=== PATIENT | male | born 1965 | race Caucasian/White ===

== ENCOUNTER 2021-02-11 10:24 | Emergency (ER) | payer OTHER, SELFPAY ==
[2021-02-11] VITALS (9 sets, daily range): BP systolic 143–147; BP diastolic 85–89; PULSE 64–86; RESP 16–20; TEMP 36.6; O2SAT 92–98; BMI 33.3
[2021-02-11] MEDS: ONDANSETRON 4 MG/2 ML INJ IV (10:40)
--- NOTE | 2021-02-11 10:52 | ED.GENADULT ---
HPI - General Adult General Chief complaint: Dizziness Stated complaint: DIZZINESS, VOMITING, PRESSURE IN EAR Time Seen by Provider: 02/11/21 10:25 Source: patient Mode of arrival: Ambulatory Limitations: no limitations History of Present Illness HPI narrative: Patient is a 55-year-old male who states that a couple days ago he started to not feel very well. He had slight episodes of room spinning sensations that did not last very long were not all that intense. He developed some fullness in his left ear. He thought he was developing some allergies although he has never had allergies in the past. Has not tried anything for symptoms. States that this morning shortly after he woke up he developed extreme episodes of room spinning sensation that is causing him to throw up. He states that it is worse when he lays down and better when he sits up. He also can reproduce his symptoms by looking up. He can look left and right without any problems. He denies any chest pain or shortness of breath. No palpitations. Has not passed out. No headache. Related Data Home Medications Medication Instructions Recorded Confirmed tamsulosin [Flomax] 0.4 mg PO PRN #0 08/05/12 Previous Rx's Medication Instructions Recorded meclizine 25 mg PO TID PRN #21 tab 02/11/21 ondansetron 4 mg PO Q6H PRN #14 tab 02/11/21 Review of Systems Constitutional Constitutional: Denies fatigue, Denies fever(s) and Denies headache(s) Eyes Eyes: Denies change in vision ENT Ears, Nose, Mouth, and Throat: Reports vertigo, Reports dizziness, Reports otalgia (Ear fullness left ear), Denies facial pain, Denies headache(s), Denies tinnitus, Denies sinus pressure and Denies sore throat Cardiovascular Cardiovascular: Denies chest pain, Denies syncope, Denies rapid heart rate, Denies irregular heart rhythm and Denies dyspnea Respiratory Respiratory: Denies cough and Denies dyspnea Gastrointestinal Gastrointestinal: Denies abdominal pain, Denies change in bowel habits, Reports nausea and Reports vomiting Genitourinary Genitourinary: Denies dysuria Genitourinary: Denies dysuria Musculoskeletal Musculoskeletal: Denies arthralgias, Denies myalgias, Denies numbness and Denies tingling Integumentary/Breasts Skin/Breast: Denies lesions and Denies rash Neurologic Neurologic: Denies behavioral changes, Denies confusion, Reports vertigo, Reports dizziness, Denies syncope, Denies headache(s), Denies numbness and Denies tingling Psychiatric Psychiatric: Denies anxiety, Denies behavioral changes and Denies confusion Endocrine Endocrine: Denies fatigue Hematologic/Lymphatic Hematologic/Lymphatic: Denies easy bleeding and Denies easy bruising Allergic/Immunologic Allergic/Immunologic: Denies urticaria Patient History Medical History Healthy adult Social History marital status: lives independently: Yes Exam Initial Vital Signs Initial Vital Signs: Vital Signs Temperature 98 F 02/11/21 10:37 Pulse Rate 86 02/11/21 10:37 Respiratory Rate 20 02/11/21 10:37 Blood Pressure 147/85 H 02/11/21 10:37 Pulse Oximetry 98 02/11/21 10:37 Const General: cooperative, comfortable and well developed Limitations: mental status not altered HENWA Head: normal to inspection and normocephalic Ears: TM's normal bilaterally Nose: external nose normal Face and sinus: normal facial exam Mouth: oral mucosae normal Eyes Eyelids: eyelids normal Pupils: PERRL Resp Effort & Inspection: normal respiratory effort Auscultation: clear to auscultation bilaterally Cardio Rate: regular rate Rhythm: regular rhythm GI Inspection: non-distended Skin Lesions: no lesions Rashes: no rashes Neuro General: patient alert, patient awake and patient oriented x3 Cranial Nerves: CN's II-XI intact bilaterally Cognition: normal cognition Speech: speech normal Motor: muscle tone normal throughout Sensory Exam: no sensory deficits noted Other: He can look left and right without reproducing the symptoms however when he looks straight up the symptoms are reproduced. Extrem General: normal to inspection and capillary refill normal Psych Appearance: grossly normal and well kempt Scores GCS [place] coma scale eye opening: Spontaneous [place] coma scale verbal response: Orientated Eduarda coma scale motor response: Obey commands Eduarda coma scale total score: 15 Course Orders Ordered: Discontinued Medications Diazepam (Diazepam 5 Mg Tablet) 5 mg PO NOW ONE Stop: 02/11/21 10:53 Last Admin: 02/11/21 11:06 Dose: 5 mg Documented by: CLEMENTINA Ondansetron HCl (Ondansetron 4 Mg/2 Ml Inj) 4 mg IV NOW ONE Stop: 02/11/21 10:35 Last Admin: 02/11/21 10:40 Dose: 4 mg Documented by: CLEMENTINA Vital Signs Vital signs: Vital Signs - 8 hr 02/11/21 10:37 02/11/21 10:54 02/11/21 11:00 Temperature 98 F Pulse Rate 86 80 75 Respiratory Rate 20 Blood Pressure 147/85 H Pulse Oximetry 98 92 92 02/11/21 11:30 02/11/21 12:00 02/11/21 12:30 Temperature Pulse Rate 67 64 67 Respiratory Rate Blood Pressure Pulse Oximetry 92 93 93 02/11/21 13:00 02/11/21 13:11 02/11/21 13:13 Temperature Pulse Rate 73 84 Respiratory Rate 16 Blood Pressure 143/89 H 143/89 H Pulse Oximetry 94 97 Medical Decision Making MDM Narrative Medical decision making narrative: Patient does clearly positional reproducible vertigo that is better when he sits still looking straight forward. He has no other neurologic findings. He does complain of left ear fullness however his exam is unremarkable. Considered etiologies such as posterior stroke versus labyrinthitis versus BPPV versus other peripheral vertigo however I feel given his presentation today is most consistent with peripheral vertigo. He did feel somewhat better with the Valium. I feel patient could be discharged home without further workup to include imaging of his head. He was given return precautions. Will send home with symptom treatment. With he and his expressed understanding agreement. Discharge Plan Departure Patient Disposition: Home Clinical Impression: Vertigo Instructions: DI for Vertigo Activity Restrictions/Additional Instructions: A prescription for meclizine and some nausea medicine was electronically transmitted to [facility]. I also recommend that you look up the Kelby maneuver on YouTube and perform it as directed and like we discussed. Contact your primary provider for a follow-up. Also recommend that you purchase [id number] antihistamine such as Claritin or Paulette or Zyrtec. The generic version of these medicine is appropriate as well. Return to the emergency department for any new or worsening symptoms Prescriptions: New meclizine 25 mg tablet 25 mg PO TID PRN (Reason: motion sickness) Qty: 21 RF: 0 ondansetron 4 mg tablet,disintegrating 4 mg PO Q6H PRN (Reason: nausea and vomiting) Qty: 14 RF: 0 No Action tamsulosin [Flomax] 0.4 MG capsule,extended release 24hr 0.4 mg PO PRN Qty: 0 RF: 0 Referrals: Theresa Johnson MD [Primary Care Provider] -
[2021-02-11] MEDS: diazePAM 5 MG TABLET PO (11:06)
== END 2021-02-11 13:13 | disposition home or self-care (01) ==
PROVIDERS: Emergency Provider Emergency Medicine; Family Provider Internal Medicine; PCP Internal Medicine
DX: R42 Dizziness and giddiness (principal)
CPT/HCPCS: 36415; 96374; 99284; J2405

== ENCOUNTER 2021-12-23 06:39 | Emergency (ER) | payer OTHER, SELFPAY ==
[2021-12-23] VITALS (10 sets, daily range): BP systolic 129–138; BP diastolic 70–78; PULSE 83–100; RESP 20; TEMP 36.9; O2SAT 92–95; BMI 34.2
--- NOTE | 2021-12-23 07:27 | ED_ITS ---
HPI - General Adult General Chief complaint: Upper Respiratory Symptoms Stated complaint: dizzy/headache tested covid+ Time Seen by Provider: 12/23/21 07:05 Source: patient Mode of arrival: Ambulatory History of Present Illness HPI narrative: 56-year-old gentleman with a history of BPH presents with increasing cough chills general malaise and dyspnea. Of note his daughter of cancer on the so they have been busy with all of her post arrangements as well as grieving. Began having some minor throat irritation on the and by the was developing a cough, malaise, fatigue, headache, mild diarrhea but no vomiting low-grade fevers, he is complaining of dizziness when he stands up. He is not currently vaccinated against COVID. He comes in for further evaluation an oxygen saturations with deep breathing are as high is 95 and at rest are 87 on room air. Comes up to 98% with 2 L nasal cannula oxygen. Related Data Home Medications Medication Instructions Recorded Confirmed tamsulosin 0.4 mg capsule (Flomax) 0.4 mg PO PRN #0 08/05/12 Previous Rx's Medication Instructions Recorded meclizine 25 mg tablet 25 mg PO TID PRN #21 tab 02/11/21 ondansetron 4 mg disintegrating 4 mg PO Q6H PRN #14 tab 02/11/21 tablet Allergies Allergy/AdvReac Type Severity Reaction Status Date / Time No Known Drug Allergies Allergy Verified 12/23/21 08:51 Review of Systems Review of Systems Narrative: Remainder of complete review of systems is otherwise unremarkable except for that included in the HPI. Patient History Medical History (Updated 12/23/21 @ 09:55 by Renita Martínez MD) COVID-19 Healthy adult Social History marital status: lives independently: Yes Smoking Status: Never smoker Smoking Status: Never smoker Substance Use Type: does not use Exam Initial Vital Signs Initial Vital Signs: Vital Signs Temperature 98.4 F 12/23/21 06:50 Pulse Rate 100 H 12/23/21 06:50 Respiratory Rate 20 12/23/21 06:50 Blood Pressure 135/70 12/23/21 06:50 Pulse Oximetry 92 12/23/21 06:50 General: Fatigued appearing but in no acute distress. Able to give a complete and coherent history. Well-nourished well-developed HEENT: Moist mucous membranes, normal sclera with reactive pupils, Neck: No JVD, supple Respiratory: Lungs are clear to auscultation, no wheezing no rales no rhonchi. Full and symmetrical air movement Cardiac: Regular rate and rhythm no murmurs no bruits Abdomen: Soft, nontender, good bowel tones, no flank pain Skin: Warm and dry, no rashes Neurologic: Grossly neurologically intact with no obvious asymmetries or abnormalities Extremities: No trauma, well perfused Psych: Cooperative, appropriate insight and affect Course Orders Ordered: ED Orders 12/23/21 08:10 Complete Blood Count AUTO DIFF Stat Comprehensive Metabolic Panel Stat D Dimer Stat Magnesium Stat Procalcitonin Stat 12/23/21 08:12 XR chest 1V Stat 12/23/21 08:30 COVID19 -Nasal swab/Pre-Proc Stat 12/23/21 09:24 Consult to MEDICAL BILLING AND CODING INSTRUCTOR - Director Of Volunteer Services Stat Discontinued Medications Dexamethasone (Dexamethasone 10 Mg/Ml Vial) 6 mg IV NOW ONE Stop: 12/23/21 08:13 Last Admin: 12/23/21 08:53 Dose: 6 mg Documented by: ALEJO Sodium Chloride (Normal Saline 0.9%) 1,000 mls @ 1,000 mls/hr IV BOLUS ONE Stop: 12/23/21 09:11 Last Admin: 12/23/21 08:53 Dose: 1,000 mls/hr Documented by: ALEJO Ketorolac Tromethamine (Ketorolac 30 Mg/Ml Vial) 15 mg IV NOW ONE Stop: 12/23/21 08:13 Last Admin: 12/23/21 08:51 Dose: 15 mg Documented by: ALEJO Metoclopramide HCl (Metoclopramide 10 Mg/2 Ml Inj) 10 mg IV NOW ONE Stop: 12/23/21 08:13 Last Admin: 12/23/21 08:52 Dose: 10 mg Documented by: ALEJO Vital Signs Vital signs: Vital Signs - 8 hr 12/23/21 06:50 12/23/21 08:13 12/23/21 08:14 Temperature 98.4 F Pulse Rate 100 H 93 H 93 H Respiratory Rate 20 Blood Pressure 135/70 138/78 Pulse Oximetry 92 94 94 12/23/21 08:30 Temperature Pulse Rate 94 H Respiratory Rate Blood Pressure 134/74 Pulse Oximetry 92 Medical Decision Making Lab Data Result diagrams: 12/23/21 08:10 12/23/21 08:10 Labs: Lab Results 12/23/21 12/23/21 12/23/21 Range/Units 08:10 08:10 08:10 WBC 4.2 L (4.5-11.0) X10^3/uL RBC 4.41 L (4.5-5.9) X10^6/uL Hgb 12.7 L (13.5-17.5) g/dL Hct 37.1 L (41-53) % MCV 84.2 (80-100) fL MCH 28.9 (26-34) PG MCHC 34.3 (30-36) % RDW 13.4 (11.6-14.8) % Plt Count 169 (150-400) X10^3/uL Neut % (Auto) 86.1 H (50-75) % Lymph % (Auto) 8.5 L (25-40) % Will % (Auto) 5.1 (3-14) % Eos % (Auto) 0.0 L (2-4) % Baso % (Auto) 0.3 (0-2) % Neut # (Auto) 3600 (6920-9931) /uL Lymph # (Auto) 400 L (9573-7612) /uL Will # (Auto) 200 (0-900) /uL Eos # (Auto) 0 (0-450) /uL Baso # (Auto) 0 (0-100) /uL D-Dimer 327 H (<230) ng/mL Sodium 129 L (137-145) mmol/L Potassium 3.5 (3.4-5.1) mmol/L Chloride 95 L (98-107) mmol/L Carbon Dioxide 28 (22-32) mmol/L BUN 7 L (9-20) mg/dL Creatinine 0.68 (0.66-1.25) mg/dL Estimated GFR > 60.0 (>60) mL/min BUN/Creatinine Ratio 10.3 (6-22) Glucose 130 H (70-100) mg/dL Calcium 8.0 L (8.4-10.2) mg/dL Magnesium 1.8 (1.6-2.3) mg/dL Total Bilirubin 0.6 (0.2-1.3) mg/dL AST 45 (17-59) IU/L ALT 36 (<50) IU/L Alkaline Phosphatase 63 (38-126) U/L Total Protein 6.5 (6.3-8.2) g/dL Albumin 3.6 (3.5-5.0) g/dL Globulin 2.9 (1.7-4.1) g/dL Albumin/Globulin Ratio 1.2 (1.0-2.8) Procalcitonin 0.06 (<0.5) ng/mL SARS-CoV-2 (PCR) (Negative) 12/23/21 Range/Units 08:30 WBC (4.5-11.0) X10^3/uL RBC (4.5-5.9) X10^6/uL Hgb (13.5-17.5) g/dL Hct (41-53) % MCV (80-100) fL MCH (26-34) PG MCHC (30-36) % RDW (11.6-14.8) % Plt Count (150-400) X10^3/uL Neut % (Auto) (50-75) % Lymph % (Auto) (25-40) % Will % (Auto) (3-14) % Eos % (Auto) (2-4) % Baso % (Auto) (0-2) % Neut # (Auto) (2307-5735) /uL Lymph # (Auto) (5711-0892) /uL Will # (Auto) (0-900) /uL Eos # (Auto) (0-450) /uL Baso # (Auto) (0-100) /uL D-Dimer (<230) ng/mL Sodium (137-145) mmol/L Potassium (3.4-5.1) mmol/L Chloride (98-107) mmol/L Carbon Dioxide (22-32) mmol/L BUN (9-20) mg/dL Creatinine (0.66-1.25) mg/dL Estimated GFR (>60) mL/min BUN/Creatinine Ratio (6-22) Glucose (70-100) mg/dL Calcium (8.4-10.2) mg/dL Magnesium (1.6-2.3) mg/dL Total Bilirubin (0.2-1.3) mg/dL AST (17-59) IU/L ALT (<50) IU/L Alkaline Phosphatase (38-126) U/L Total Protein (6.3-8.2) g/dL Albumin (3.5-5.0) g/dL Globulin (1.7-4.1) g/dL Albumin/Globulin Ratio (1.0-2.8) Procalcitonin (<0.5) ng/mL SARS-CoV-2 (PCR) Positive H (Negative) Imaging Data Chest x-ray: Radiologist's Impression: FINDINGS:? ? Surgical changes and devices:? None.? ? Lungs and pleura:? Patchy bilateral pulmonary infiltrates noted.? Low lung vol umes accentuate pulmonary interstitium and heart size. ? Mediastinum:? Mediastinal contours appear normal.? Heart size is normal.? ? Bones and chest wall:? No suspicious bony lesions.? Overlying soft tissues appear unremarkable.? ? IMPRESSION:? ? Patchy bilateral peripheral pulmonary infiltrates consistent with viral or atypical pneumonia ? ? ? Approved by: Denny Pickett M.D. on 12/23/2021 at 7:41? MDM Narrative Medical decision making narrative: 56-year-old gentleman likely on day 9 or 10 of COVID, unvaccinated. No signs of secondary infection and chest x-ray is consistent with patchy bilateral peripheral pulmonary infiltrates consistent with COVID. At rest oxygen saturations are as low as 87% however with the brief being activity come up to the mid 90s. Will see if home oxygen might be available for this gentleman. After L of fluid he is still slightly orthostatic however he is no longer dizzy when he stands up. Remains slightly tachypneic with respiratory rate in the 28 range. Standing up at bedside with 2 L of oxygen in place his oxygen saturations are increasing up to 98%. Home oxygen has been arranged through [facility] [place]. Is discharged home with an oxygen canister from the emergency department. Reviewed anticipated resolution of symptoms and strongly encouraged him to return to the emergency department if he is having increasing respiratory issues. This point he is safe for home discharge Discharge Plan Departure Patient Disposition: Home Clinical Impression: COVID-19 Instructions: DI for COVID-19 (Suspected or Confirmed ) Activity Restrictions/Additional Instructions: Thank you for coming in today You do have COVID pneumonia Your oxygen levels were as low as 87% and as high is 94% on room air. At this time, you are on the border of needing to be admitted for your COVID-19. I have arranged for home oxygen to be available. You did receive a single dose of steroids/Decadron in the emergency department. If your oxygen levels are consistently below 90 or you are having more difficulty breathing you do need to return to the emergency department for further evaluation and probable admission to the hospital. I hope that you improve completely and quickly. Prescriptions: No Action tamsulosin [Flomax] 0.4 MG capsule,extended release 24hr 0.4 mg PO PRN Qty: 0 0RF meclizine 25 mg tablet 25 mg PO TID PRN (Reason: motion sickness) Qty: 21 0RF ondansetron 4 mg tablet,disintegrating 4 mg PO Q6H PRN (Reason: nausea and vomiting) Qty: 14 0RF Referrals: Theresa Johnson MD [Primary Care Provider] -
--- NOTE | 2021-12-23 08:12 | DI.RAD.S_ITS ---
PROCEDURE: XR CHEST 1V INDICATIONS: cough, dyspnea, covid TECHNIQUE: One view of the chest was acquired. COMPARISON: [facility], , CHEST 2 VIEW, 10/20/2010, 11:24. FINDINGS: Surgical changes and devices: None. Lungs and pleura: Patchy bilateral pulmonary infiltrates noted. Low lung volumes accentuate pulmonary interstitium and heart size. Mediastinum: Mediastinal contours appear normal. Heart size is normal. Bones and chest wall: No suspicious bony lesions. Overlying soft tissues appear unremarkable. IMPRESSION: Patchy bilateral peripheral pulmonary infiltrates consistent with viral or atypical pneumonia Approved by: Denny Pickett M.D. on 12/23/2021 at 7:41
[2021-12-23 08:25] LABS: Add Manual Diff / Slide Review NO; Basophils Absolute Auto 0 /uL (0-100); Basophils Percent Auto 0.3 % (0-2); Eosinophils Absolute Auto 0 /uL (0-450); Hematocrit 37.1 % (41-53); Hemoglobin 12.7 g/dL (13.5-17.5); Lymphocytes Absolute Auto 400 /uL (1100-4500); Lymphocytes Percent Auto 8.5 % (25-40); Mean Corpuscular HGB Conc 34.3 % (30-36); Mean Corpuscular Hemoglobin 28.9 PG (26-34); Mean Corpuscular Volume 84.2 fL (80-100); Monocytes Absolute Auto 200 /uL (0-900); Monocytes Percent Auto 5.1 % (3-14); Neutrophils Absolute Auto 3600 /uL (1500-7000); Neutrophils Percent Auto 86.1 % (50-75); Platelet Count 169 X10^3/uL (150-400); Red Blood Cell Count 4.41 X10^6/uL (4.5-5.9); Red Cell Distribution Width 13.4 % (11.6-14.8); White Blood Cell Count 4.2 X10^3/uL (4.5-11.0)
[2021-12-23 08:34] LABS: D Dimer 327 ng/mL (<230)
[2021-12-23 08:36] LABS: Alanine Aminotransferase 36 IU/L (<50); Albumin 3.6 g/dL (3.5-5.0); Albumin Globulin Ratio 1.2 (1.0-2.8); Alkaline Phosphatase 63 U/L (38-126); Aspartate Aminotransferase 45 IU/L (17-59); BUN Creatinine Ratio 10.3 (6-22); Bilirubin Total 0.6 mg/dL (0.2-1.3); Blood Urea Nitrogen 7 mg/dL (9-20); Carbon Dioxide 28 mmol/L (22-32); Chloride 95 mmol/L (98-107); Estimated Glomerular Filt Rate > 60.0 mL/min (>60); Globulin 2.9 g/dL (1.7-4.1); Glucose 130 mg/dL (70-100); HEMOLYSIS < 15 (0-50); Magnesium 1.8 mg/dL (1.6-2.3); Potassium 3.5 mmol/L (3.4-5.1); Sodium 129 mmol/L (137-145); Total Protein 6.5 g/dL (6.3-8.2)
[2021-12-23] MEDS: KETOROLAC 30 MG/ML VIAL 15 MG IV (08:51)
[2021-12-23 08:52] LABS: Procalcitonin 0.06 ng/mL (<0.5)
[2021-12-23] MEDS: METOCLOPRAMIDE 10 MG/2 ML INJ IV (08:52)
[2021-12-23] MEDS: SODIUM CHLORIDE 0.9% 1,000 ML 1000 ML IV (08:53)
[2021-12-23] MEDS: DEXAMETHASONE 10 MG/ML VIAL 6 MG IV (08:53)
[2021-12-23 09:05] LABS: COVID19 -Nasal RAPID POSITIVE (Negative)
--- NOTE | 2021-12-23 11:45 | PC.NURSE ---
RT at bedside re-educating pt and spouse on use of oxygen.
== END 2021-12-23 11:55 | disposition home or self-care (01) ==
PROVIDERS: Emergency Provider Emergency Medicine; Family Provider Internal Medicine; PCP Internal Medicine
DX: U07.1 COVID-19 (principal)
CPT/HCPCS: 36415; 71045; 80053; 83735; 84145; 85025; 85379; 87635; 99284; C9803; J1100; J1885; J2765

== ENCOUNTER 2021-12-24 16:24 | Inpatient (IN) | payer OTHER, SELFPAY ==
[2021-12-24] VITALS (20 sets, daily range): BP systolic 135–141; BP diastolic 76–86; PULSE 87–131; RESP 17–33; TEMP 36.6–37; O2SAT 92–99; BMI 35.6; BMI 34.4
--- NOTE | 2021-12-24 16:43 | DI.RAD.S_ITS ---
PROCEDURE: XR CHEST 1V INDICATIONS: covid TECHNIQUE: One view of the chest was acquired. COMPARISON: [facility], CR, XR CHEST 1V, 12/23/2021, 8:17. FINDINGS: Surgical changes and devices: None. Lungs and pleura: Persistent but improving patchy peripheral pulmonary infiltrates greater than left again noted. Pleural spaces are clear. Mediastinum: Mediastinal contours appear normal. Heart size is normal. Bones and chest wall: No suspicious bony lesions. Overlying soft tissues appear unremarkable. IMPRESSION: Persistent but improving patchy bilateral pulmonary infiltrates Approved by: Denny Pickett M.D. on 12/24/2021 at 16:20
[2021-12-24 16:54] LABS: Add Manual Diff / Slide Review NO; Basophils Absolute Auto 0 /uL (0-100); Basophils Percent Auto 0.2 % (0-2); Eosinophils Absolute Auto 0 /uL (0-450); Hematocrit 40.6 % (41-53); Hemoglobin 14.1 g/dL (13.5-17.5); Lymphocytes Absolute Auto 400 /uL (1100-4500); Lymphocytes Percent Auto 6.7 % (25-40); Mean Corpuscular HGB Conc 34.8 % (30-36); Mean Corpuscular Hemoglobin 29.1 PG (26-34); Mean Corpuscular Volume 83.6 fL (80-100); Monocytes Absolute Auto 400 /uL (0-900); Monocytes Percent Auto 6.5 % (3-14); Neutrophils Absolute Auto 4900 /uL (1500-7000); Neutrophils Percent Auto 86.6 % (50-75); Platelet Count 224 X10^3/uL (150-400); Red Blood Cell Count 4.86 X10^6/uL (4.5-5.9); Red Cell Distribution Width 13.3 % (11.6-14.8); White Blood Cell Count 5.7 X10^3/uL (4.5-11.0)
[2021-12-24] MEDS: DEXAMETHASONE 10 MG/ML VIAL 6 MG IV (16:55)
[2021-12-24] MEDS: SODIUM CHLORIDE 0.9% 1,000 ML 150 ML IV (16:55)
[2021-12-24] MEDS: REMDESIVIR 200 MG in SODIUM CHLORIDE 0.9% 210 ML 250 ML IV (16:55)
--- NOTE | 2021-12-24 16:57 | ED_ITS ---
HPI - General Adult General Chief complaint: Shortness of Breath/Dyspnea Stated complaint: covid + Time Seen by Provider: 12/24/21 16:40 Source: patient Mode of arrival: Ambulatory History of Present Illness HPI narrative: 56-year-old gentleman with medical history significant only for BPH presents yesterday with COVID complaints and increasing hypoxia. Workup at that time did not show any secondary complications was doing well on 2 L and we arranged for home discharge with oxygen with the understanding that he would return if worse. He was feeling better last night than this morning was noticing increasing heartburn, burping, hypoxia even with oxygen turned up to 4 L nasal cannula and increasing discomfort. He comes back for further evaluation. On initial presentation he is tachypneic, appears uncomfortable, and mildly diaphoretic. He does not report palpitations or lower extremity edema. He has not had any diarrhea or constipation and no abdominal pain. Has had mild nausea but no vomiting today. He and his note that he has lost approximately 20 lb in the last 2-3 weeks in the setting of a the his daughter, arrangements COVID and now his significant loss of taste. Related Data Home Medications Medication Instructions Recorded Confirmed tamsulosin 0.4 mg capsule (Flomax) 0.4 mg PO PRN #0 08/05/12 Previous Rx's Medication Instructions Recorded meclizine 25 mg tablet 25 mg PO TID PRN #21 tab 02/11/21 ondansetron 4 mg disintegrating 4 mg PO Q6H PRN #14 tab 02/11/21 tablet Allergies Allergy/AdvReac Type Severity Reaction Status Date / Time No Known Drug Allergies Allergy Verified 12/23/21 08:51 Review of Systems Review of Systems Narrative: Remainder of complete review of systems is otherwise unremarkable except for that included in the HPI. Patient History Medical History COVID-19 Healthy adult Social History marital status: lives independently: Yes Smoking Status: Never smoker Smoking Status: Never smoker Substance Use Type: does not use Exam Initial Vital Signs Initial Vital Signs: Vital Signs Temperature 98.6 F 12/24/21 16:30 Pulse Rate 110 H 12/24/21 16:30 Respiratory Rate 20 12/24/21 16:30 Blood Pressure 141/76 H 12/24/21 16:30 Pulse Oximetry 97 12/24/21 16:30 General: Pale, acute respiratory distress, speaking in 4-5 word sentences. HEENT: Moist mucous membranes, mildly injected sclera sclera with reactive pupils, Neck: No JVD, supple Respiratory: Tachypneic, no accessory muscle use, Lungs are clear to auscultation, no wheezing no rales no rhonchi. Full and symmetrical air movement Cardiac: Tachycardic but otherwise Regular rate and rhythm no murmurs no bruits Abdomen: Soft, nontender, good bowel tones, no flank pain Skin: Pale, diaphoretic, no rashes Neurologic: Globally weak but Grossly neurologically intact with no obvious asymmetries or abnormalities Extremities: No trauma, decreased peripheral perfusion but maintained capillary blood Psych: Cooperative, appropriate insight and affect Course Orders Ordered: ED Orders 12/24/21 16:43 XR chest 1V Stat 12/24/21 16:45 Complete Blood Count AUTO DIFF Stat Comprehensive Metabolic Panel Stat D Dimer Stat Magnesium Stat NT-proBNP (BNP-Adult 18+) Stat Procalcitonin Stat Troponin I Stat 12/24/21 16:56 ABG [Arterial Blood Gas] Stat 12/24/21 16:57 High flow/High humidity nasal NOW 12/24/21 17:32 CT angio chest PE protocol Stat Sodium Chloride (Normal Saline 0.9%) 1,000 mls @ 150 mls/hr IV CONT ANDREINA Last Admin: 12/24/21 16:55 Dose: 150 mls/hr Documented by: DIXIE Discontinued Medications Dexamethasone (Dexamethasone 10 Mg/Ml Vial) 6 mg IV NOW ONE Stop: 12/24/21 16:41 Last Admin: 12/24/21 16:55 Dose: 6 mg Documented by: DIXIE Remdesivir 200 mg/ Sodium (Chloride) 250 mls @ 250 mls/hr IV NOW ONE Stop: 12/24/21 17:39 Last Admin: 12/24/21 16:55 Dose: 250 mls/hr Documented by: DIXIE Vital Signs Vital signs: Vital Signs - 8 hr 12/24/21 16:30 Temperature 98.6 F Pulse Rate 110 H Respiratory Rate 20 Blood Pressure 141/76 H Pulse Oximetry 97 Medical Decision Making Lab Data Result diagrams: 12/24/21 16:45 12/24/21 16:45 Labs: Lab Results 12/24/21 12/24/21 12/24/21 Range/Units 16:45 16:45 16:45 WBC 5.7 (4.5-11.0) X10^3/uL RBC 4.86 (4.5-5.9) X10^6/uL Hgb 14.1 (13.5-17.5) g/dL Hct 40.6 L (41-53) % MCV 83.6 (80-100) fL MCH 29.1 (26-34) PG MCHC 34.8 (30-36) % RDW 13.3 (11.6-14.8) % Plt Count 224 (150-400) X10^3/uL Neut % (Auto) 86.6 H (50-75) % Lymph % (Auto) 6.7 L (25-40) % Bailey % (Auto) 6.5 (3-14) % Eos % (Auto) 0.0 L (2-4) % Baso % (Auto) 0.2 (0-2) % Neut # (Auto) 4900 (9450-4674) /uL Lymph # (Auto) 400 L (5859-4723) /uL Bailey # (Auto) 400 (0-900) /uL Eos # (Auto) 0 (0-450) /uL Baso # (Auto) 0 (0-100) /uL D-Dimer 402 H (<230) ng/mL ABG pH (7.35-7.45) ABG pCO2 (35-45) mmHg ABG pO2 (80-100) mmHg ABG HCO3 (22-26) mmol/L ABG Total CO2 (21-31) mmol/L ABG O2 Saturation (95-100) % ABG Base Excess (-2-2) mmol/L FiO2 Sodium 133 L (137-145) mmol/L Potassium 3.9 (3.4-5.1) mmol/L Chloride 97 L (98-107) mmol/L Carbon Dioxide 28 (22-32) mmol/L BUN 13 (9-20) mg/dL Creatinine 0.84 (0.66-1.25) mg/dL Estimated GFR > 60.0 (>60) mL/min BUN/Creatinine Ratio 15.5 (6-22) Glucose 133 H (70-100) mg/dL Calcium 8.7 (8.4-10.2) mg/dL Magnesium 2.0 (1.6-2.3) mg/dL Total Bilirubin 0.7 (0.2-1.3) mg/dL AST 69 H (17-59) IU/L ALT 54 H (<50) IU/L Alkaline Phosphatase 76 (38-126) U/L Troponin I < 0.012 (0.01-0.034) ng/mL NT-Pro-B Natriuret Pep 480 H (<125) pg/mL Total Protein 7.4 (6.3-8.2) g/dL Albumin 4.1 (3.5-5.0) g/dL Globulin 3.3 (1.7-4.1) g/dL Albumin/Globulin Ratio 1.2 (1.0-2.8) Procalcitonin 0.06 (<0.5) ng/mL 12/24/21 Range/Units 17:11 WBC (4.5-11.0) X10^3/uL RBC (4.5-5.9) X10^6/uL Hgb (13.5-17.5) g/dL Hct (41-53) % MCV (80-100) fL MCH (26-34) PG MCHC (30-36) % RDW (11.6-14.8) % Plt Count (150-400) X10^3/uL Neut % (Auto) (50-75) % Lymph % (Auto) (25-40) % [place] % (Auto) (3-14) % Eos % (Auto) (2-4) % Baso % (Auto) (0-2) % Neut # (Auto) (7073-0705) /uL Lymph # (Auto) (2402-6166) /uL [place] # (Auto) (0-900) /uL Eos # (Auto) (0-450) /uL Baso # (Auto) (0-100) /uL D-Dimer (<230) ng/mL ABG pH 7.55 H (7.35-7.45) ABG pCO2 27.5 L (35-45) mmHg ABG pO2 51 L (80-100) mmHg ABG HCO3 24 (22-26) mmol/L ABG Total CO2 25 (21-31) mmol/L ABG O2 Saturation 91 L (95-100) % ABG Base Excess 2.0 (-2-2) mmol/L FiO2 21 Sodium (137-145) mmol/L Potassium (3.4-5.1) mmol/L Chloride (98-107) mmol/L Carbon Dioxide (22-32) mmol/L BUN (9-20) mg/dL Creatinine (0.66-1.25) mg/dL Estimated GFR (>60) mL/min BUN/Creatinine Ratio (6-22) Glucose (70-100) mg/dL Calcium (8.4-10.2) mg/dL Magnesium (1.6-2.3) mg/dL Total Bilirubin (0.2-1.3) mg/dL AST (17-59) IU/L ALT (<50) IU/L Alkaline Phosphatase (38-126) U/L Troponin I (0.01-0.034) ng/mL NT-Pro-B Natriuret Pep (<125) pg/mL Total Protein (6.3-8.2) g/dL Albumin (3.5-5.0) g/dL Globulin (1.7-4.1) g/dL Albumin/Globulin Ratio (1.0-2.8) Procalcitonin (<0.5) ng/mL Imaging Data Chest x-ray: Radiologist's Impression: FINDINGS:? ? Surgical changes and devices:? None.? ? Lungs and pleura:? Persistent but improving patchy peripheral pulmonary infiltrates greater than left again noted.? Pleural spaces are clear. ? Mediastinum:? Mediastinal contours appear normal.? Heart size is normal.? ? Bones and chest wall:? No suspicious bony lesions.? Overlying soft tissues appear unremarkable.? ? IMPRESSION:? Persistent but improving patchy bilateral pulmonary infiltrates ? ? ? Approved by: Denny Pickett M.D. on 12/24/2021 at 16:20? MDM Narrative Medical decision making narrative: 56-year-old gentleman on day 10-12 of a COVID-19 infection, non vaccinated. He was seen in the emergency department yesterday mildly hypoxic and felt to be safe to discharge home with home oxygen. Returns today significantly worse. ABG has a PaO2 of 50 on room air. He is significantly tachypneic even with n jessy cannula oxygen and oxygen saturations in the upper 90s. Pale diaphoretic and clearly worse from yesterday's presentation. He is given a single dose of Decadron IV yesterday. Additional Decadron today and room to severe started. The placed on high-flow oxygen for the significant tachypnea. Labs do not suggest acute coronary syndrome, pneumothorax or bacterial superinfection. D- dimer has increased slightly and with the degree of tachypnea will do a PE study to rule out PE prior to hospital admission. He is started on high-flow oxygen for comfort. 5:55pm Patient is admitted to the hospitalist service. CT scan to rule out pulmonary pulmonary embolism is currently pending. Discharge Plan Departure Patient Disposition: Admitted As Inpatient Clinical Impression: COVID-19 Prescriptions: No Action tamsulosin [Flomax] 0.4 MG capsule,extended release 24hr 0.4 mg PO PRN Qty: 0 0RF meclizine 25 mg tablet 25 mg PO TID PRN (Reason: motion sickness) Qty: 21 0RF ondansetron 4 mg tablet,disintegrating 4 mg PO Q6H PRN (Reason: nausea and vomiting) Qty: 14 0RF Referrals: Theresa Johnson MD [Primary Care Provider] -
[2021-12-24 17:04] LABS: D Dimer 402 ng/mL (<230)
[2021-12-24 17:05] LABS: Alanine Aminotransferase 54 IU/L (<50); Albumin 4.1 g/dL (3.5-5.0); Albumin Globulin Ratio 1.2 (1.0-2.8); Alkaline Phosphatase 76 U/L (38-126); Aspartate Aminotransferase 69 IU/L (17-59); BUN Creatinine Ratio 15.5 (6-22); Bilirubin Total 0.7 mg/dL (0.2-1.3); Blood Urea Nitrogen 13 mg/dL (9-20); Calcium 8.7 mg/dL (8.4-10.2); Carbon Dioxide 28 mmol/L (22-32); Chloride 97 mmol/L (98-107); Estimated Glomerular Filt Rate > 60.0 mL/min (>60); Globulin 3.3 g/dL (1.7-4.1); Glucose 133 mg/dL (70-100); HEMOLYSIS < 15 (0-50); Potassium 3.9 mmol/L (3.4-5.1); Sodium 133 mmol/L (137-145); Total Protein 7.4 g/dL (6.3-8.2)
[2021-12-24 17:17] LABS: NT-proBNP (BNP-Adult 18+) 480 pg/mL (<125); Troponin I < 0.012 ng/mL (0.01-0.034)
[2021-12-24 17:22] LABS: Procalcitonin 0.06 ng/mL (<0.5)
[2021-12-24 17:31] LABS: HCO3 ABG 24 mmol/L (22-26); PCO2 ABG 27.5 mmHg (35-45); PO2 ABG 51 mmHg (80-100); pH ABG 7.55 (7.35-7.45)
[2021-12-24 17:32] LABS: Fractionated Inspired Oxygen 21; Oxygen Saturation ABG 91 % (95-100); TCO2 ABG 25 mmol/L (21-31)
--- NOTE | 2021-12-24 17:32 | DI.CT.S_ITS ---
PROCEDURE: CT ANGIO CHEST PE PROTOCOL INDICATIONS: Elevated D-dimer, COVID-19, increased tachypnea TECHNIQUE: After the administration of intravenous contrast, 2 mm thick sections acquired from the pulmonary apices to the posterior costophrenic angles. 3-dimensional maximum intensity projection (MIP) coronal and sagittal reformats were then acquired through the thorax. For radiation dose reduction, the following was used: automated exposure control, adjustment of mA and/or kV according to patient size. COMPARISON: [facility], CR, XR CHEST 1V, 12/23/2021, 8:17. [facility], CR, XR CHEST 1V, 12/24/2021, 16:44. FINDINGS: Image quality: Suboptimal opacification of pulmonary arteries. Pulmonary arteries: Pulmonary arteries are normal in size, and demonstrate no intraluminal filling defects to suggest central pulmonary embolism. Lungs and pleura: Multiple peripheral groundglass infiltrates bilaterally are present, consistent with atypical pneumonia. No pleural effusions or pneumothorax. Central and peripheral airways are patent. Mediastinum: Heart size is normal. There is mild coronary artery calcification. No pericardial effusion. No mediastinal or hilar adenopathy. Thoracic aorta is normal in caliber and enhancement. Esophagus is normal in caliber. Small hiatal hernia. Bones and chest wall: No suspicious bony lesions. Ribs and thoracic spine appear intact throughout. Thyroid gland is normal. No axillary or supraclavicular adenopathy. Abdomen: Visualized upper abdominal solid organs appear normal in the early arterial phase of enhancement. IMPRESSION: 1. Suboptimal examination with suboptimal opacification of pulmonary arteries. No definitive pulmonary embolism. 2. Moderately severe atypical pneumonia. 3. Mild coronary artery calcification. 4. Small hiatal hernia. Dictated by: Serina Hansen M.D. on 12/24/2021 at 18:22 Approved by: Serina Hansen M.D. on 12/24/2021 at 18:27
--- NOTE | 2021-12-24 19:29 | PM.HP.1 ---
History of Present Illness History of Present Illness Date Patient Seen: 12/24/21 Time Patient Seen: 18:33 Chief complaint: covid + Narrative: Arturo Riley is a 56-year-old gentleman with medical history of essential hypertension, diabetes, BPH and is unvaccinated for COVID-19 presented to the ED yesterday with +COVID with complaints of increasing hypoxia.? Workup at that time did not show any secondary complications and was doing well on 2 L, he was discharged home with oxygen, and to return if worse.? This morning he experienced increasing discomfort, heartburn, burping, and worsening hypoxia even with oxygen turned up to 4 L/NC.? He returned to the ED today tachypneic, tachycardic, increased discomfort, body aches, distress, and mildly diaphoretic. His breathing is labored with speaking, only 4-5 word sentences, complains of mild nausea, loss of taste, with no vomiting. He denies chest pain, palpitations, lower extremity edema, diarrhea, constipation, abdominal pain, fever, chills, loss of smell, urinary symptoms, headache, numbness, tingling, recent trauma or injury. The patients verbalized that their daughter recently, and they are in the process of arrangements. And in light of this the patient has lost approximately 20 lb in the last 2-3 weeks. The patient's vitals in the ED he was found to be tachycardic, and slighlty tachypneic-BP 141/76, HR 110, RR 20, O2 saturation 97% on 4 L. the patient's respiratory function continued to deteriorate upon admit temp 98.6?, BP 135/79, HR 92, R 20, patient is now requiring heated high-flow 5 L with an O2 saturation of 95%. Patient's ABGs demonstrate a pH of 7.55, pCO2 27.5, PO2 51, O2 sat 91%. Patient's CBC WNL, sodium 133, chloride 97, glucose 133. Patient's D-dimer 4O2, S CTA was done severe atypical pneumonia, mild coronary artery calcification, no definite pulmonary embolism found. Patient's BNP 480, procalcitonin WNL, troponin WNL. Patient had a positive COVID PCR on 12/23/2021 in the ED. patient's chest x-ray demonstrated persistent but improving patchy bilateral pulmonary infiltrates. Patient to be admitted for acute respiratory failure with hypoxia due to COVID-19 infection. Patient History Medical History (Updated 12/24/21 @ 23:41 by EFRAIN Tijerina) BPH (benign prostatic hyperplasia) COVID-19 Diabetes mellitus type 2 in obese Essential hypertension Obesity (BMI 30.0-34.9) Surgical History (Updated 12/24/21 @ 23:45 by EFRAIN Tijerina) History of right hip replacement Family & Social History Family History Daughter No problems noted. Social History: lives independently Yes with his spouse Safety & Behavioral: Feels Safe in Current Yes Environment Tobacco & Substance use: Smoking Status Never smoker Substance Use Type does not use Alcohol use never Meds Home Medications and Allergies Home Medications Medication Instructions Recorded Confirmed Type tamsulosin 0.4 mg capsule (Flomax) 0.4 mg PO PRN #0 08/05/12 12/24/21 History lisinopril 20 mg tablet 20 mg PO BID 12/24/21 12/24/21 History metformin 500 mg tablet 250 mg PO DAILY PRN 12/24/21 12/24/21 History metoprolol tartrate 50 mg tablet 50 mg PO BID 12/24/21 12/24/21 History Allergies Allergy/AdvReac Type Severity Reaction Status Date / Time No Known Drug Allergies Allergy Verified 12/23/21 08:51 Review of Systems Review of Systems Narrative: All 12 point systems reviewed with the patient and are negative except otherwise documented. Exam Vital Signs (past 8 hours): - 12/24/21 16:30 12/24/21 16:47 12/24/21 17:00 Temperature 98.6 F Pulse Rate 110 H 90 96 H Respiratory Rate 20 29 H Blood Pressure 141/76 H Pulse Oximetry 97 96 95 12/24/21 17:30 12/24/21 18:00 12/24/21 18:30 Temperature Pulse Rate 102 H 101 H 92 H Respiratory Rate 22 24 24 Blood Pressure 135/79 Pulse Oximetry 96 95 94 12/24/21 18:42 Temperature Pulse Rate 92 H Respiratory Rate 20 Blood Pressure Pulse Oximetry 95 Oxygen Delivery Method Nasal Cannula Oxygen Flow Rate 5 Narrative Exam Narrative: General: Patient is a well-developed, well-nourished adult male, with mildly increased work of breathing, but in no acute distress at this time. HEENT: Normocephalic, atraumatic, extraocular muscles intact, oral pharynx is clear and mucous membranes are moist. Neck is supple and symmetric, trachea is midline, no adenopathy, no thyroid enlargement, nontender, no masses palpated. Negative for JVD Chest: Normal AP diameter and contour without kyphoscoliosis, no nasal flaring, or retractions. Breathing continues to be slightly tachypneic and labored. Lungs: Auscultation of all lung gallardo are clear without adventitious sounds, wheezes, rhonchi, or rales. Cardio: Tachycardic, regular rate and rhythm without murmur, rubs, or gallops, no carotid bruit, no cardiac pulsations present. Abdomen: Soft nontender, negative for organomegaly, or masses. Bowel sounds are present in all 4 quadrants without guarding or rebound, no CVA tenderness. Musculoskeletal: Muscle strength and tone are equal within normal limits, no deformity, crepitus, effusions, cyanosis, clubbing or edema present. Full range of motion intact radial and pedal pulses are normal. Skin: Warm dry and intact without rashes, ulcerations or petechiae. Neuro: Alert and orientated x3, strength is +5/5 in all extremities, sensation to touch intact, no gross deficits noted of cranial nerves. Psych: Patient has a well-kept appearance, depressed affect, mental status attitude thought context and judgment are appropriate for age. Objective Labs Result Diagrams: 12/24/21 16:45 12/24/21 16:45 Labs: Laboratory Results - last 24 hr 12/24/21 12/24/21 12/24/21 16:45 16:45 16:45 WBC 5.7 RBC 4.86 Hgb 14.1 Hct 40.6 L MCV 83.6 MCH 29.1 MCHC 34.8 RDW 13.3 Plt Count 224 Neut % (Auto) 86.6 H Lymph % (Auto) 6.7 L [place] % (Auto) 6.5 Eos % (Auto) 0.0 L Baso % (Auto) 0.2 Neut # (Auto) 4900 Lymph # (Auto) 400 L [place] # (Auto) 400 Eos # (Auto) 0 Baso # (Auto) 0 D-Dimer 402 H ABG pH ABG pCO2 ABG pO2 ABG HCO3 ABG Total CO2 ABG O2 Saturation ABG Base Excess FiO2 Sodium 133 L Potassium 3.9 Chloride 97 L Carbon Dioxide 28 BUN 13 Creatinine 0.84 Estimated GFR > 60.0 BUN/Creatinine Ratio 15.5 Glucose 133 H Calcium 8.7 Magnesium 2.0 Total Bilirubin 0.7 AST 69 H ALT 54 H Alkaline Phosphatase 76 Troponin I < 0.012 NT-Pro-B Natriuret Pep 480 H Total Protein 7.4 Albumin 4.1 Globulin 3.3 Albumin/Globulin Ratio 1.2 Procalcitonin 0.06 12/24/21 17:11 WBC RBC Hgb Hct MCV MCH MCHC RDW Plt Count Neut % (Auto) Lymph % (Auto) [place] % (Auto) Eos % (Auto) Baso % (Auto) Neut # (Auto) Lymph # (Auto) [place] # (Auto) Eos # (Auto) Baso # (Auto) D-Dimer ABG pH 7.55 H ABG pCO2 27.5 L ABG pO2 51 L ABG HCO3 24 ABG Total CO2 25 ABG O2 Saturation 91 L ABG Base Excess 2.0 FiO2 21 Sodium Potassium Chloride Carbon Dioxide BUN Creatinine Estimated GFR BUN/Creatinine Ratio Glucose Calcium Magnesium Total Bilirubin AST ALT Alkaline Phosphatase Troponin I NT-Pro-B Natriuret Pep Total Protein Albumin Globulin Albumin/Globulin Ratio Procalcitonin Assessment & Plan Assessment & Plan narrative: Arturo Riley is a 56-year-old male with a medical history of essential hypertension, diabetes, BPH and is unvaccinated for COVID-19. Who presented to the ED yesterday with a positive COVID test and returned today with worsening hypoxia, tachycardia and tachypnea requiring high-flow oxygenation at a rate of 5 Liters. Patient requires hospital admission after failing outpatient management for worsening acute respiratory failure with hypoxia due to COVID pneumonia. 1. 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 q.day-to treat acid reflux secondary to steroid usage -Ativan ordered as needed for anxiety due to patient isolation -encourage frequent proning, order hydrocodone for pain management to encourage frequent and often proning -incentive spirometry 2. Essential hypertension, chronic, present on admission -continue lisinopril metoprolol 3. Non insulin-dependent Type 2 diabetes, acute on chronic, present on admission -A1c ordered -patient admitted under diabetes protocol -continue metformin -Lispro low-dose sliding scale for coverage 4. BPH, unknown if lower urinary track involvement, chronic, present on admission -continue Flomax 5. Acute grief due to the loss of a child, acute, present on admission -[employer] consult for Support Services and evaluation -Pastoral Service consult -Discussed with patient starting and antidepressant-patient to be provided with medication handout and education. To be advised that the medication takes approximately 3-4 wks to get to a therapeutic level. Patient will need to follow up with his PCP 2 weeks after starting medication for evaluation. -Start Lexapro 10mg QD 6. Obesity as evidence by BMI of 35.6, chronic, present on admission -dietary consult ordered Code status:Limited code-NO INTUBATION Surrogate decision maker: COVID PCR:Positive 12/23/2021 COVID vaccination: Unvaccinated DVT/VTE prophylaxis: Lovenox 40 mg and SCDs Disposition: Patient admitted for worsening acute respiratory failure with hypoxia secondary to COVID pneumonia expected length of stay greater than 2 midnights I have utilized all available immediate resources to obtain, update, or review the patient's current medications. I confirmed that the patient's advanced care plan is present, Code status is documented and/or surrogate decision maker is listed in the patient's medical record. Time Spent With Patient Critical Care time: I spent a total of [] minutes of critical care time on this patient's care today; this time is exclusive of procedural time.
[2021-12-24] MEDS: DOCUSATE 100 MG CAPSULE PO (21:56)
--- NOTE | 2021-12-24 23:07 | P.TELICUCN_ITS ---
History of Present Illness Consult details Chief complaint: covid + :: This patient was seen via real time interactive two-way audiovisual telecommunication. Narrative: 56 y.o. male with PMHx of BPH, HTN, T2DM who returned to ED with worsening SOB. He is COVID-19 (+) and had been sent home on 2L/min nasal cannula O2. Patient also with a recent in family and has lost ~ 20 lbs. Started on HFNC 30% 35 L/min and saturating 92-94%. Started on remdesivir and dexamethasone. He is unvaccinated. [facility] Medical History BPH (benign prostatic hyperplasia) COVID-19 Healthy adult Social History marital status: household members: spouse lives independently: Yes Smoking Status: Never smoker alcohol intake: current Current Medications Current Medications Medications: Home Medications tamsulosin 0.4 mg capsule (Flomax) 0.4 mg PO PRN #0 08/05/12 [History Confirmed 12/24/21] lisinopril 20 mg tablet 20 mg PO BID 12/24/21 [History Confirmed 12/24/21] metformin 500 mg tablet 250 mg PO DAILY PRN 12/24/21 [History Confirmed 12/24/21] metoprolol tartrate 50 mg tablet 50 mg PO BID 12/24/21 [History Confirmed 12/24/21] Visit Medications (administered) Generic Name Dose Route Start Last Admin Trade Name Freq PRN Reason Stop Dose Admin Docusate Sodium 100 mg 12/24/21 21:00 12/24/21 21:56 Docusate 100 Mg Capsule PO 100 mg BID ANDREINA Administration Exam Vital Signs (past 8 hours): - 12/24/21 16:30 12/24/21 16:47 12/24/21 17:00 Temperature 98.6 F Pulse Rate 110 H 90 96 H Respiratory Rate 20 29 H Blood Pressure 141/76 H Pulse Oximetry 97 96 95 12/24/21 17:30 12/24/21 18:00 12/24/21 18:30 Temperature Pulse Rate 102 H 101 H 92 H Respiratory Rate 22 24 24 Blood Pressure 135/79 Pulse Oximetry 96 95 94 12/24/21 18:42 12/24/21 19:00 12/24/21 19:30 Temperature Pulse Rate 92 H 96 H 88 Respiratory Rate 20 28 H 17 Blood Pressure Pulse Oximetry 95 95 93 12/24/21 20:00 12/24/21 20:20 12/24/21 20:30 Temperature Pulse Rate 91 H 94 H 87 Respiratory Rate 18 20 18 Blood Pressure 135/79 Pulse Oximetry 92 92 92 12/24/21 21:00 12/24/21 21:28 12/24/21 21:30 Temperature Pulse Rate 93 H 118 H 112 H Respiratory Rate 20 32 H 29 H Blood Pressure 141/86 H Pulse Oximetry 93 99 12/24/21 21:36 12/24/21 22:00 Temperature 97.9 F Pulse Rate 116 H 92 H Respiratory Rate 27 H 20 Blood Pressure 141/86 H 141/86 H Pulse Oximetry 96 94 Fraction of Inspired Oxygen 30 Oxygen Delivery Method Heated High Flow Oxygen Flow Rate 35 Const General: comfortable and well developed Resp Effort & Inspection: normal respiratory effort Neuro General: patient alert and patient awake Objective Labs Result Diagrams: 12/24/21 16:45 12/24/21 16:45 Labs: Laboratory Results - last 24 hr 12/24/21 12/24/21 12/24/21 16:45 16:45 16:45 WBC 5.7 RBC 4.86 Hgb 14.1 Hct 40.6 L MCV 83.6 MCH 29.1 MCHC 34.8 RDW 13.3 Plt Count 224 Neut % (Auto) 86.6 H Lymph % (Auto) 6.7 L [place] % (Auto) 6.5 Eos % (Auto) 0.0 L Baso % (Auto) 0.2 Neut # (Auto) 4900 Lymph # (Auto) 400 L [place] # (Auto) 400 Eos # (Auto) 0 Baso # (Auto) 0 D-Dimer 402 H ABG pH ABG pCO2 ABG pO2 ABG HCO3 ABG Total CO2 ABG O2 Saturation ABG Base Excess FiO2 Sodium 133 L Potassium 3.9 Chloride 97 L Carbon Dioxide 28 BUN 13 Creatinine 0.84 Estimated GFR > 60.0 BUN/Creatinine Ratio 15.5 Glucose 133 H Calcium 8.7 Magnesium 2.0 Total Bilirubin 0.7 AST 69 H ALT 54 H Alkaline Phosphatase 76 Troponin I < 0.012 NT-Pro-B Natriuret Pep 480 H Total Protein 7.4 Albumin 4.1 Globulin 3.3 Albumin/Globulin Ratio 1.2 Procalcitonin 0.06 12/24/21 17:11 WBC RBC Hgb Hct MCV MCH MCHC RDW Plt Count Neut % (Auto) Lymph % (Auto) [place] % (Auto) Eos % (Auto) Baso % (Auto) Neut # (Auto) Lymph # (Auto) [place] # (Auto) Eos # (Auto) Baso # (Auto) D-Dimer ABG pH 7.55 H ABG pCO2 27.5 L ABG pO2 51 L ABG HCO3 24 ABG Total CO2 25 ABG O2 Saturation 91 L ABG Base Excess 2.0 FiO2 21 Sodium Potassium Chloride Carbon Dioxide BUN Creatinine Estimated GFR BUN/Creatinine Ratio Glucose Calcium Magnesium Total Bilirubin AST ALT Alkaline Phosphatase Troponin I NT-Pro-B Natriuret Pep Total Protein Albumin Globulin Albumin/Globulin Ratio Procalcitonin Assessment & Plan Assessment and plan (1) Acute respiratory failure with hypoxia: Status: Acute Plan: -Continue HFNC (2) COVID-19: Status: Acute Plan: -Continue remdesivir, dexamethasone -Add baricitinib -Encourage self-proning -Once daily VTE enoxaparin chemoprophylaxis probably sufficient given D-dimer level; would follow D-dimer level and increase enoxaparin to BID chemoprophylactic dose if it continues to rise (3) Type 2 diabetes mellitus: Status: Acute Plan: -Continue ACEI -SUBQ insulin regimen (4) BPH (benign prostatic hyperplasia): Status: Acute Plan: -Continue Flomax Time Spent With Patient Critical Care time: I spent a total of 35 minutes of critical care time on this patient's care today; this time is exclusive of procedural time.
[2021-12-24 23:46] LABS: Hemoglobin A1C% w Est Avg Glu 6.3 % (4.0-6.0)
[2021-12-25] VITALS (21 sets, daily range): BP systolic 105–159; BP diastolic 57–91; PULSE 61–113; RESP 17–22; O2SAT 90–98
[2021-12-25] MEDS: lisinopriL 20 MG TABLET PO ×2 (00:12→09:03)
[2021-12-25] MEDS: BARICITINIB 2 MG TABLET 4 MG PO ×2 (00:12→09:02)
[2021-12-25] MEDS: METFORMIN HCL 500 MG TABLET 250 MG PO (00:12)
[2021-12-25] MEDS: METOPROLOL IR 50 MG TABLET PO ×2 (00:13→09:02)
[2021-12-25] MEDS: MELATONIN 3 MG TABLET 9 MG PO (00:13)
[2021-12-25] MEDS: TAMSULOSIN 0.4 MG CAPSULE PO (00:57)
--- NOTE | 2021-12-25 01:36 | PC.NURSE ---
Admitted to rm 230 from ED per Stretcher. Placed on HHFNC 35L 30% Oriented to environment. Pt grieving recent loss of daughter, request for straddle bug operator services and document analyst counseling placed. Instructed pt on proning and he is agreeable to prone as able.
[2021-12-25 05:15] LABS: Add Manual Diff / Slide Review NO; Basophils Absolute Auto 0 /uL (0-100); Basophils Percent Auto 0.9 % (0-2); Eosinophils Absolute Auto 0 /uL (0-450); Hematocrit 36.6 % (41-53); Hemoglobin 12.5 g/dL (13.5-17.5); Lymphocytes Absolute Auto 500 /uL (1100-4500); Lymphocytes Percent Auto 16.1 % (25-40); Mean Corpuscular HGB Conc 34.3 % (30-36); Mean Corpuscular Hemoglobin 29.4 PG (26-34); Mean Corpuscular Volume 85.7 fL (80-100); Monocytes Absolute Auto 300 /uL (0-900); Monocytes Percent Auto 9.2 % (3-14); Neutrophils Absolute Auto 2400 /uL (1500-7000); Neutrophils Percent Auto 73.8 % (50-75); Platelet Count 217 X10^3/uL (150-400); Red Blood Cell Count 4.27 X10^6/uL (4.5-5.9); Red Cell Distribution Width 13.6 % (11.6-14.8); White Blood Cell Count 3.2 X10^3/uL (4.5-11.0)
[2021-12-25 05:23] LABS: Alanine Aminotransferase 61 IU/L (<50); Albumin 3.6 g/dL (3.5-5.0); Albumin Globulin Ratio 1.3 (1.0-2.8); Alkaline Phosphatase 59 U/L (38-126); Aspartate Aminotransferase 67 IU/L (17-59); Bilirubin Total 0.6 mg/dL (0.2-1.3); Blood Urea Nitrogen 12 mg/dL (9-20); Calcium 8.3 mg/dL (8.4-10.2); Carbon Dioxide 30 mmol/L (22-32); Chloride 99 mmol/L (98-107); Estimated Glomerular Filt Rate > 60.0 mL/min (>60); Globulin 2.8 g/dL (1.7-4.1); Glucose 141 mg/dL (70-100); HEMOLYSIS < 15 (0-50); Sodium 133 mmol/L (137-145); Total Protein 6.4 g/dL (6.3-8.2)
[2021-12-25 05:26] LABS: Magnesium 2.2 mg/dL (1.6-2.3)
[2021-12-25 05:31] LABS: NT-proBNP (BNP-Adult 18+) 307 pg/mL (<125)
[2021-12-25] MEDS: PANTOPRAZOLE DR 20 MG TABLET PO (05:45)
--- NOTE | 2021-12-25 07:00 | PM.PN.EICU ---
Subjective Subjective :: This patient was seen via real time interactive two-way audiovisual telecommunication. Synopsis: 56 y.o. male with PMHx of BPH, HTN, T2DM who returned to ED with worsening SOB.? He is COVID-19 (+) and had been sent home on 2L/min nasal cannula O2.? Patient also with a recent in family and has lost ~ 20 lbs.? Started on HFNC 30% 35 L/min and saturating 92-94%.? Started on remdesivir and dexamethasone.? He is unvaccinated. 12/25/21: Patient resting comfortably this morning, on HFNC w/ SPO2 low to mid 90's., in NAD. Transferred out of ICU early this morning. WBC 4.2 NA 133 and stable A1C 6.3 AST/ALT remain mildly elevated, stable BNP 307 --> 480 MRSA screen positive CTA 12/24 reviewed, b/l ggo's and interstitial prominence Current Medications Current Medications Medications: Home Medications tamsulosin 0.4 mg capsule (Flomax) 0.4 mg PO PRN #0 08/05/12 [History Confirmed 12/24/21] lisinopril 20 mg tablet 20 mg PO BID 12/24/21 [History Confirmed 12/24/21] metformin 500 mg tablet 250 mg PO DAILY PRN 12/24/21 [History Confirmed 12/24/21] metoprolol tartrate 50 mg tablet 50 mg PO BID 12/24/21 [History Confirmed 12/24/21] Visit Medications (administered) Generic Name Dose Route Start Last Admin Trade Name Freq PRN Reason Stop Dose Admin Docusate Sodium 100 mg 12/24/21 21:00 12/24/21 21:56 Docusate 100 Mg Capsule PO 100 mg BID ANDREINA Administration Lisinopril 20 mg 12/24/21 23:30 12/25/21 00:12 Lisinopril 20 Mg Tablet PO 20 mg BID ANDREINA Administration Melatonin 9 mg 12/24/21 23:45 12/25/21 00:13 Melatonin 3 Mg Tablet PO 9 mg BEDTIME ANDREINA Administration Metformin HCl 250 mg 12/24/21 23:17 12/25/21 00:12 Metformin Hcl 500 Mg Tablet PO 250 mg DAILY PRN Administration Hypoglycemia Metoprolol Tartrate 50 mg 12/24/21 23:30 12/25/21 00:13 Metoprolol Ir 50 Mg Tablet PO 50 mg BID ANDREINA Administration Pantoprazole Sodium 20 mg 12/25/21 06:00 12/25/21 05:[address] 20 Mg Tablet PO 20 mg 0600 ANDREINA Administration Tamsulosin HCl 0.4 mg 12/25/21 00:30 12/25/21 00:57 Tamsulosin 0.4 Mg Capsule PO 0.4 mg BEDTIME ANDREINA Administration Objective Ventilator Parameters: Ventilator Settings FiO2 30 Labs Result Diagrams: 12/25/21 04:15 12/25/21 04:15 Labs: Laboratory Results - last 24 hr 12/24/21 12/24/21 12/24/21 16:45 16:45 16:45 WBC 5.7 RBC 4.86 Hgb 14.1 Hct 40.6 L MCV 83.6 MCH 29.1 MCHC 34.8 RDW 13.3 Plt Count 224 Neut % (Auto) 86.6 H Lymph % (Auto) 6.7 L [place] % (Auto) 6.5 Eos % (Auto) 0.0 L Baso % (Auto) 0.2 Neut # (Auto) 4900 Lymph # (Auto) 400 L [place] # (Auto) 400 Eos # (Auto) 0 Baso # (Auto) 0 D-Dimer 402 H ABG pH ABG pCO2 ABG pO2 ABG HCO3 ABG Total CO2 ABG O2 Saturation ABG Base Excess FiO2 Sodium 133 L Potassium 3.9 Chloride 97 L Carbon Dioxide 28 BUN 13 Creatinine 0.84 Estimated GFR > 60.0 BUN/Creatinine Ratio 15.5 Glucose 133 H Hemoglobin A1c Calcium 8.7 Magnesium 2.0 Total Bilirubin 0.7 AST 69 H ALT 54 H Alkaline Phosphatase 76 Troponin I < 0.012 NT-Pro-B Natriuret Pep 480 H Total Protein 7.4 Albumin 4.1 Globulin 3.3 Albumin/Globulin Ratio 1.2 Procalcitonin 0.06 Nasal Screen MRSA (PCR) 12/24/21 12/24/21 12/24/21 16:45 17:11 21:30 WBC RBC Hgb Hct MCV MCH MCHC RDW Plt Count Neut % (Auto) Lymph % (Auto) [place] % (Auto) Eos % (Auto) Baso % (Auto) Neut # (Auto) Lymph # (Auto) [place] # (Auto) Eos # (Auto) Baso # (Auto) D-Dimer ABG pH 7.55 H ABG pCO2 27.5 L ABG pO2 51 L ABG HCO3 24 ABG Total CO2 25 ABG O2 Saturation 91 L ABG Base Excess 2.0 FiO2 21 Sodium Potassium Chloride Carbon Dioxide BUN Creatinine Estimated GFR BUN/Creatinine Ratio Glucose Hemoglobin A1c 6.3 H Calcium Magnesium Total Bilirubin AST ALT Alkaline Phosphatase Troponin I NT-Pro-B Natriuret Pep Total Protein Albumin Globulin Albumin/Globulin Ratio Procalcitonin Nasal Screen MRSA (PCR) Positive for mrsa H 12/25/21 12/25/21 12/25/21 04:15 04:15 04:15 WBC 3.2 L RBC 4.27 L Hgb 12.5 L Hct 36.6 L MCV 85.7 MCH 29.4 MCHC 34.3 RDW 13.6 Plt Count 217 Neut % (Auto) 73.8 Lymph % (Auto) 16.1 L [place] % (Auto) 9.2 Eos % (Auto) 0.0 L Baso % (Auto) 0.9 Neut # (Auto) 2400 Lymph # (Auto) 500 L [place] # (Auto) 300 Eos # (Auto) 0 Baso # (Auto) 0 D-Dimer ABG pH ABG pCO2 ABG pO2 ABG HCO3 ABG Total CO2 ABG O2 Saturation ABG Base Excess FiO2 Sodium 133 L Potassium 4.0 Chloride 99 Carbon Dioxide 30 BUN 12 Creatinine 0.75 Estimated GFR > 60.0 BUN/Creatinine Ratio 16.0 Glucose 141 H Hemoglobin A1c Calcium 8.3 L Magnesium 2.2 Total Bilirubin 0.6 AST 67 H ALT 61 H Alkaline Phosphatase 59 Troponin I NT-Pro-B Natriuret Pep 307 H Total Protein 6.4 Albumin 3.6 Globulin 2.8 Albumin/Globulin Ratio 1.3 Procalcitonin Nasal Screen MRSA (PCR) Exam Vital Signs (past 8 hours): - 12/24/21 23:30 12/25/21 00:00 12/25/21 00:07 Pulse Rate 131 H 97 H 92 H Respiratory Rate 33 H 20 Blood Pressure Pulse Oximetry 96 96 96 12/25/21 00:12 12/25/21 00:30 12/25/21 01:00 Pulse Rate 113 H 82 76 Respiratory Rate 22 20 Blood Pressure 141/80 H 159/91 H 141/74 H Pulse Oximetry 93 94 12/25/21 01:15 12/25/21 01:30 12/25/21 02:00 Pulse Rate 76 70 70 Respiratory Rate 20 18 21 Blood Pressure 141/74 H 129/73 Pulse Oximetry 94 92 96 12/25/21 02:10 12/25/21 02:30 12/25/21 03:00 Pulse Rate 63 67 67 Respiratory Rate 18 20 18 Blood Pressure 129/73 126/70 Pulse Oximetry 97 95 92 12/25/21 03:30 12/25/21 04:00 12/25/21 04:08 Pulse Rate 67 68 69 Respiratory Rate 17 19 18 Blood Pressure 122/57 L 122/57 L Pulse Oximetry 95 96 98 12/25/21 04:30 12/25/21 05:00 12/25/21 05:30 Pulse Rate 67 65 65 Respiratory Rate 19 18 18 Blood Pressure 110/63 Pulse Oximetry 95 90 L 92 12/25/21 06:01 Pulse Rate 61 Respiratory Rate 18 Blood Pressure 110/63 Pulse Oximetry 93 Fraction of Inspired Oxygen 30 Oxygen Delivery Method Heated High Flow Oxygen Flow Rate 35 Quality TeleICU VTE Deep Vein Thrombosis/Pulmonary Embolism Present on Admission: No Assessment & Plan Assessment & Plan narrative: (1) Acute respiratory failure with hypoxia: ?Status:?Acute ?Plan: -Continue HFNC, wean for lowest setting possible to achieve SPO2 90-94% (2) COVID-19: ?Status:?Acute ?Plan: -Continue remdesivir, dexamethasone and baricitinib -Encourage self-proning -Once daily VTE enoxaparin chemoprophylaxis probably sufficient given D-dimer level; would follow D-dimer level and increase enoxaparin to BID chemoprophylactic dose if it continues to rise (3) Type 2 diabetes mellitus: ?Status:?Acute ?Plan: -Continue ACEI -SUBQ insulin regimen -Goal FSBS 140-180 (4) BPH (benign prostatic hyperplasia): ?Status:?Acute ?Plan: -Continue Flomax Transferred out of ICU per primary team. Please contact our service for any questions or concerns. We will sign off at this time. Time Spent With Patient Critical Care time: I spent a total of [] minutes of critical care time on this patient's care today; this time is exclusive of procedural time.
--- NOTE | 2021-12-25 07:42 | P.TELICUPN_ITS ---
Subjective Subjective :: This patient was seen via real time interactive two-way audiovisual telecommunication. Current Medications Current Medications Medications: Home Medications tamsulosin 0.4 mg capsule (Flomax) 0.4 mg PO PRN #0 08/05/12 [History Confirmed 12/24/21] lisinopril 20 mg tablet 20 mg PO BID 12/24/21 [History Confirmed 12/24/21] metformin 500 mg tablet 250 mg PO DAILY PRN 12/24/21 [History Confirmed 12/24/21] metoprolol tartrate 50 mg tablet 50 mg PO BID 12/24/21 [History Confirmed 12/24/21] Visit Medications (administered) Generic Name Dose Route Start Last Admin Trade Name Freq PRN Reason Stop Dose Admin Docusate Sodium 100 mg 12/24/21 21:00 12/24/21 21:56 Docusate 100 Mg Capsule PO 100 mg BID ANDREINA Administration Lisinopril 20 mg 12/24/21 23:30 12/25/21 00:12 Lisinopril 20 Mg Tablet PO 20 mg BID ANDREINA Administration Melatonin 9 mg 12/24/21 23:45 12/25/21 00:13 Melatonin 3 Mg Tablet PO 9 mg BEDTIME ANDREINA Administration Metformin HCl 250 mg 12/24/21 23:17 12/25/21 00:12 Metformin Hcl 500 Mg Tablet PO 250 mg DAILY PRN Administration Hypoglycemia Metoprolol Tartrate 50 mg 12/24/21 23:30 12/25/21 00:13 Metoprolol Ir 50 Mg Tablet PO 50 mg BID ANDREINA Administration Pantoprazole Sodium 20 mg 12/25/21 06:00 12/25/21 05:[address] 20 Mg Tablet PO 20 mg 0600 ANDREINA Administration Tamsulosin HCl 0.4 mg 12/25/21 00:30 12/25/21 00:57 Tamsulosin 0.4 Mg Capsule PO 0.4 mg BEDTIME ANDREINA Administration Objective Ventilator Parameters: Ventilator Settings FiO2 30 Labs Result Diagrams: 12/25/21 04:15 12/25/21 04:15 Labs: Laboratory Results - last 24 hr 12/24/21 12/24/21 12/24/21 16:45 16:45 16:45 WBC 5.7 RBC 4.86 Hgb 14.1 Hct 40.6 L MCV 83.6 MCH 29.1 MCHC 34.8 RDW 13.3 Plt Count 224 Neut % (Auto) 86.6 H Lymph % (Auto) 6.7 L [place] % (Auto) 6.5 Eos % (Auto) 0.0 L Baso % (Auto) 0.2 Neut # (Auto) 4900 Lymph # (Auto) 400 L [place] # (Auto) 400 Eos # (Auto) 0 Baso # (Auto) 0 D-Dimer 402 H ABG pH ABG pCO2 ABG pO2 ABG HCO3 ABG Total CO2 ABG O2 Saturation ABG Base Excess FiO2 Sodium 133 L Potassium 3.9 Chloride 97 L Carbon Dioxide 28 BUN 13 Creatinine 0.84 Estimated GFR > 60.0 BUN/Creatinine Ratio 15.5 Glucose 133 H Hemoglobin A1c Calcium 8.7 Magnesium 2.0 Total Bilirubin 0.7 AST 69 H ALT 54 H Alkaline Phosphatase 76 Troponin I < 0.012 NT-Pro-B Natriuret Pep 480 H Total Protein 7.4 Albumin 4.1 Globulin 3.3 Albumin/Globulin Ratio 1.2 Procalcitonin 0.06 Nasal Screen MRSA (PCR) 12/24/21 12/24/21 12/24/21 16:45 17:11 21:30 WBC RBC Hgb Hct MCV MCH MCHC RDW Plt Count Neut % (Auto) Lymph % (Auto) [place] % (Auto) Eos % (Auto) Baso % (Auto) Neut # (Auto) Lymph # (Auto) [place] # (Auto) Eos # (Auto) Baso # (Auto) D-Dimer ABG pH 7.55 H ABG pCO2 27.5 L ABG pO2 51 L ABG HCO3 24 ABG Total CO2 25 ABG O2 Saturation 91 L ABG Base Excess 2.0 FiO2 21 Sodium Potassium Chloride Carbon Dioxide BUN Creatinine Estimated GFR BUN/Creatinine Ratio Glucose Hemoglobin A1c 6.3 H Calcium Magnesium Total Bilirubin AST ALT Alkaline Phosphatase Troponin I NT-Pro-B Natriuret Pep Total Protein Albumin Globulin Albumin/Globulin Ratio Procalcitonin Nasal Screen MRSA (PCR) Positive for mrsa H 12/25/21 12/25/21 12/25/21 04:15 04:15 04:15 WBC 3.2 L RBC 4.27 L Hgb 12.5 L Hct 36.6 L MCV 85.7 MCH 29.4 MCHC 34.3 RDW 13.6 Plt Count 217 Neut % (Auto) 73.8 Lymph % (Auto) 16.1 L [place] % (Auto) 9.2 Eos % (Auto) 0.0 L Baso % (Auto) 0.9 Neut # (Auto) 2400 Lymph # (Auto) 500 L [place] # (Auto) 300 Eos # (Auto) 0 Baso # (Auto) 0 D-Dimer ABG pH ABG pCO2 ABG pO2 ABG HCO3 ABG Total CO2 ABG O2 Saturation ABG Base Excess FiO2 Sodium 133 L Potassium 4.0 Chloride 99 Carbon Dioxide 30 BUN 12 Creatinine 0.75 Estimated GFR > 60.0 BUN/Creatinine Ratio 16.0 Glucose 141 H Hemoglobin A1c Calcium 8.3 L Magnesium 2.2 Total Bilirubin 0.6 AST 67 H ALT 61 H Alkaline Phosphatase 59 Troponin I NT-Pro-B Natriuret Pep 307 H Total Protein 6.4 Albumin 3.6 Globulin 2.8 Albumin/Globulin Ratio 1.3 Procalcitonin Nasal Screen MRSA (PCR) Exam Vital Signs (past 8 hours): - 12/25/21 00:00 12/25/21 00:07 12/25/21 00:12 Pulse Rate 97 H 92 H 113 H Respiratory Rate 20 Blood Pressure 141/80 H Pulse Oximetry 96 96 12/25/21 00:30 12/25/21 01:00 12/25/21 01:15 Pulse Rate 82 76 76 Respiratory Rate 22 20 20 Blood Pressure 159/91 H 141/74 H 141/74 H Pulse Oximetry 93 94 94 12/25/21 01:30 12/25/21 02:00 12/25/21 02:10 Pulse Rate 70 70 63 Respiratory Rate 18 21 18 Blood Pressure 129/73 129/73 Pulse Oximetry 92 96 97 12/25/21 02:30 12/25/21 03:00 12/25/21 03:30 Pulse Rate 67 67 67 Respiratory Rate 20 18 17 Blood Pressure 126/70 Pulse Oximetry 95 92 95 12/25/21 04:00 12/25/21 04:08 12/25/21 04:30 Pulse Rate 68 69 67 Respiratory Rate 19 18 19 Blood Pressure 122/57 L 122/57 L Pulse Oximetry 96 98 95 12/25/21 05:00 12/25/21 05:30 12/25/21 06:01 Pulse Rate 65 65 61 Respiratory Rate 18 18 18 Blood Pressure 110/63 110/63 Pulse Oximetry 90 L 92 93 Fraction of Inspired Oxygen 30 Oxygen Delivery Method Heated High Flow Oxygen Flow Rate 35 Quality TeleICU VTE Deep Vein Thrombosis/Pulmonary Embolism Present on Admission: No Assessment & Plan Time Spent With Patient Critical Care time: I spent a total of [] minutes of critical care time on this patient's care today; this time is exclusive of procedural time.
[2021-12-25] MEDS: DOCUSATE 100 MG CAPSULE PO (09:02)
[2021-12-25] MEDS: ACETAMINOPHEN 325 MG TABLET 650 MG PO (09:02)
[2021-12-25] MEDS: ENOXAPARIN 40 MG/0.4 ML SYRINGE SUBCUT (09:02)
[2021-12-25] MEDS: dexAMETHasone 4 MG TABLET PO (09:02)
[2021-12-25] MEDS: ESCITALOPRAM 10 MG TABLET PO (09:02)
--- NOTE | 2021-12-25 09:54 | RT ---
PER VERBAL ORDER BY DR. Tejeda TO ASSESS PT'S O2 NEEDS, PT AT REST NOTED AT 92% SPO2 ON RA, AND WITH ABMULATION, SPO2 INCREASED TO 94%. PT IS ALREADY SETUP WITH HOME OXYGEN. DR. Tejeda NOTIFIED OF RESULTS.
[2021-12-25] MEDS: INFLUENZA VACCINE QIV 0.5 ML SYRINGE IM (11:31)
--- NOTE | 2021-12-25 15:28 | PM.DS.1 ---
History of Present Illness History of Present Illness Chief complaint: covid + Narrative: Per Afua Lockhart: ?Arturo Riley is a 56-year-old gentleman with medical history of essential hypertension, diabetes, BPH and is unvaccinated for COVID-19 presented to the ED yesterday with +COVID with complaints of increasing hypoxia.? Workup at that time did not show any secondary complications and was doing well on 2 L, he was discharged home with oxygen, and to return if worse.? This morning he experienced increasing discomfort, heartburn, burping, and worsening hypoxia even with oxygen turned up to 4 L/NC.? He returned to the ED today tachypneic, tachycardic, increased discomfort, body aches, distress, and mildly diaphoretic.? His breathing is labored with speaking, only 4-5 word sentences, complains of mild nausea, loss of taste, with no vomiting. He denies chest pain, palpitations, lower extremity edema, diarrhea, constipation, abdominal pain, fever, chills, loss of smell, urinary symptoms, headache, numbness, tingling, recent trauma or injury.? The patients verbalized that their daughter recently, and they are in the process of arrangements.? And in light of this the patient has lost approximately 20 lb in the last 2-3 weeks. The patient's vitals in the ED he was found to be tachycardic, and slighlty tachypneic-BP 141/76, HR 110, RR 20, O2 saturation 97% on 4 L. the patient's respiratory function continued to deteriorate upon admit temp 98.6?, BP 135/79, HR 92, R 20, patient is now requiring heated high-flow 5 L with an O2 saturation of 95%.? Patient's ABGs demonstrate a pH of 7.55, pCO2 27.5, PO2 51, O2 sat 91%.? Patient's CBC WNL, sodium 133, chloride 97, glucose 133.? Patient's D-dimer 4O2, S CTA was done severe atypical pneumonia, mild coronary artery calcification, no definite pulmonary embolism found.? Patient's BNP 480, procalcitonin WNL, troponin WNL.? Patient had a positive COVID PCR on 12/23/2021 in the ED. patient's chest x-ray demonstrated persistent but improving patchy bilateral pulmonary infiltrates.? Patient to be admitted for acute respiratory failure with hypoxia due to COVID-19 infection. Discharge Providers Provider Date of admission: 12/24/21 18:14 Discharge Date: 12/25/21 Primary care physician: Theresa Johnson MD Consults: 12/24/21 19:22 Consult to Respiratory Therapy Evaluate & Treat Comment: Covid pneumonia Physician Instructions: Evaluate and treat 12/24/21 19:23 Consult to Dietitian, Adult Routine Comment: Reason For Exam: BMI 35.6 12/24/21 19:53 Consult to FLOORS BUFFER - Mechatronics Technologist Routine Comment: Daughter recently -Acute Grief FLOORS BUFFER Consult: Behavioral Health Assess Community Health Res Need 12/24/21 22:07 Consult to Pastoral Services Routine Comment: dealing with recent of daughter r/t brst CA 12/24/21 23:12 Consult to Tele-bilingual inside sales representative Routine Comment: Consulting Provider: Tesf[employer] Tele-intensiv[employer] Reason for consultation: Tissue Coordinator services Has provider been notified: Yes Discharge provider: Mike Foster MD Summary Hospital Course Discharge Diagnosis: 1. Acute hypoxemic respiratory failure secondary to COVID pneumonia 2. Hypertension 3. Type 2 Diabetes 4. BPH 5. Obesity Hospital Course: Mr. Riley was admitted with shortness of breath. He initially was in the ICU as there was concern he would require heated high flow oxygen. He was very briefly on low settings for heated high flow, which corresponded to low liter nasal canula. He was quickly transitioned off heated high flow and at rest was feeling well without oxygen. He already did have oxygen setup at home, and he is encouraged to use oxygen as needed going forward 2L for symptomatic improvement. He was started on an ssri on his request due to grief from recently losing his child. He is encouraged to isolate for a week, and he is encouraged to get vaccinated when his symptoms resolve. Discharge time 35 minutes Exam Vital Signs (past 8 hours): - 12/25/21 07:30 12/25/21 09:00 12/25/21 09:35 Pulse Rate 68 75 84 Respiratory Rate 20 19 20 Blood Pressure 105/62 109/67 Pulse Oximetry 95 90 L 92 Fraction of Inspired Oxygen 30 Oxygen Delivery Method Room Air Oxygen Flow Rate 35 Narrative Exam Narrative: GEN: no acute distress CV: regular rate and rhythm PULM: clear bilaterally Objective Labs Result Diagrams: 12/25/21 04:15 12/25/21 04:15 Labs: Laboratory Results - last 24 hr 12/24/21 12/24/21 12/24/21 16:45 16:45 16:45 WBC 5.7 RBC 4.86 Hgb 14.1 Hct 40.6 L MCV 83.6 MCH 29.1 MCHC 34.8 RDW 13.3 Plt Count 224 Neut % (Auto) 86.6 H Lymph % (Auto) 6.7 L Todd % (Auto) 6.5 Eos % (Auto) 0.0 L Baso % (Auto) 0.2 Neut # (Auto) 4900 Lymph # (Auto) 400 L Todd # (Auto) 400 Eos # (Auto) 0 Baso # (Auto) 0 D-Dimer 402 H ABG pH ABG pCO2 ABG pO2 ABG HCO3 ABG Total CO2 ABG O2 Saturation ABG Base Excess FiO2 Sodium 133 L Potassium 3.9 Chloride 97 L Carbon Dioxide 28 BUN 13 Creatinine 0.84 Estimated GFR > 60.0 BUN/Creatinine Ratio 15.5 Glucose 133 H Hemoglobin A1c Calcium 8.7 Magnesium 2.0 Total Bilirubin 0.7 AST 69 H ALT 54 H Alkaline Phosphatase 76 Troponin I < 0.012 NT-Pro-B Natriuret Pep 480 H Total Protein 7.4 Albumin 4.1 Globulin 3.3 Albumin/Globulin Ratio 1.2 Procalcitonin 0.06 Nasal Screen MRSA (PCR) 12/24/21 12/24/21 12/24/21 16:45 17:11 21:30 WBC RBC Hgb Hct MCV MCH MCHC RDW Plt Count Neut % (Auto) Lymph % (Auto) Todd % (Auto) Eos % (Auto) Baso % (Auto) Neut # (Auto) Lymph # (Auto) Todd # (Auto) Eos # (Auto) Baso # (Auto) D-Dimer ABG pH 7.55 H ABG pCO2 27.5 L ABG pO2 51 L ABG HCO3 24 ABG Total CO2 25 ABG O2 Saturation 91 L ABG Base Excess 2.0 FiO2 21 Sodium Potassium Chloride Carbon Dioxide BUN Creatinine Estimated GFR BUN/Creatinine Ratio Glucose Hemoglobin A1c 6.3 H Calcium Magnesium Total Bilirubin AST ALT Alkaline Phosphatase Troponin I NT-Pro-B Natriuret Pep Total Protein Albumin Globulin Albumin/Globulin Ratio Procalcitonin Nasal Screen MRSA (PCR) Positive for mrsa H 12/25/21 12/25/21 12/25/21 04:15 04:15 04:15 WBC 3.2 L RBC 4.27 L Hgb 12.5 L Hct 36.6 L MCV 85.7 MCH 29.4 MCHC 34.3 RDW 13.6 Plt Count 217 Neut % (Auto) 73.8 Lymph % (Auto) 16.1 L Todd % (Auto) 9.2 Eos % (Auto) 0.0 L Baso % (Auto) 0.9 Neut # (Auto) 2400 Lymph # (Auto) 500 L Todd # (Auto) 300 Eos # (Auto) 0 Baso # (Auto) 0 D-Dimer ABG pH ABG pCO2 ABG pO2 ABG HCO3 ABG Total CO2 ABG O2 Saturation ABG Base Excess FiO2 Sodium 133 L Potassium 4.0 Chloride 99 Carbon Dioxide 30 BUN 12 Creatinine 0.75 Estimated GFR > 60.0 BUN/Creatinine Ratio 16.0 Glucose 141 H Hemoglobin A1c Calcium 8.3 L Magnesium 2.2 Total Bilirubin 0.6 AST 67 H ALT 61 H Alkaline Phosphatase 59 Troponin I NT-Pro-B Natriuret Pep 307 H Total Protein 6.4 Albumin 3.6 Globulin 2.8 Albumin/Globulin Ratio 1.3 Procalcitonin Nasal Screen MRSA (PCR) [facility] Medical History (Updated 12/24/21 @ 23:41 by EFRAIN Tijerina) BPH (benign prostatic hyperplasia) COVID-19 Diabetes mellitus type 2 in obese Essential hypertension Obesity (BMI 30.0-34.9) Surgical History (Updated 12/24/21 @ 23:45 by EFRAIN Tijerina) History of right hip replacement Family History (Updated 12/24/21 @ 23:45 by EFRAIN Tijerina) Daughter No problems noted. Social History marital status: household members: spouse lives independently: Yes Smoking Status: Never smoker alcohol intake: current Discharge Plan Discharge Plan Patient Disposition: Home Provider Discharge Comment: Mr. Riley was admitted with COVID pneumonia. He improved with treatment. He was requiring 1L of oxygen at rest, and 2-3L with activity. He is encouraged to isolate for another week. He is encouraged to get vaccinated once his symptoms are gone. Discharge orders & Medications Prescriptions: New dexamethasone 6 mg tablet 6 mg PO DAILY Qty: 3 0RF escitalopram oxalate [Lexapro] 10 mg Tablet 10 mg PO DAILY Qty: 30 0RF Continued tamsulosin [Flomax] 0.4 MG capsule,extended release 24hr 0.4 mg PO PRN Qty: 0 0RF metformin 500 mg Tablet 250 mg PO DAILY PRN (Reason: Hypoglycemia) 0RF Rx Instructions: pt checks blood sugar QAM and if >120 takes 250mg metformin lisinopril 20 mg Tablet 20 mg PO BID 0RF metoprolol tartrate 50 mg Tablet 50 mg PO BID 0RF Follow up/Referrals: Theresa Johnson MD [Primary Care Provider] - ('s office will contact patient to set up follow up appt. [phone] ) Diet/Activity/Treatments Diet: Carb-consistent/Diabetic Visit Report/Discharge Packet Instructions: Home Oxygen Therapy, DI for COVID-19 (Suspected or Confirmed ) Discharge Data Primary Care Provider: Theresa Johnson Quality VTE Deep Vein Thrombosis/Pulmonary Embolism Present on Admission: No
== END 2021-12-25 11:30 | disposition home or self-care (01) | DRG 177 ==
LOC: ED 17:59 → AC 18:16 → ICU 20:22
PROVIDERS: Nurse Practitioner Family; Admitting Provider Internal Medicine; Emergency Provider Emergency Medicine; Family Provider Internal Medicine; PCP Internal Medicine; Referring Provider Emergency Medicine; Visit Provider Internal Medicine
DX: U07.1 COVID-19 (principal); J12.82 Pneumonia due to coronavirus disease 2019; J96.01 Acute respiratory failure with hypoxia; I10 Essential (primary) hypertension; E11.9 Type 2 diabetes mellitus without complications; N40.0 Benign prostatic hyperplasia without lower urinary tract symptoms; F43.20 Adjustment disorder, unspecified; Z66 Do not resuscitate; Z23 Encounter for immunization; Z79.84 Long term (current) use of oral hypoglycemic drugs
CPT/HCPCS: 36415; 36600; 71045; 71275; 80053; 82805; 82962; 83036; 83735; 83880; 84145; 84484; 85025; 85379; 87635; 87797; 90471; 90656; 93005; 94618; 94762; 96361; 96365; 96366; 96374; 96375; 99284; 99285; C9803; A9270; J1100; J1650; J1815; J1885; J2765; Q2038; Q9967

== ENCOUNTER → 2022-05-07 07:50 | Outpatient (CLI) | payer OTHER, SELFPAY ==
[2021-12-24 22:01] VITALS: BMI 34.4
--- NOTE | 2022-05-07 07:53 | DI.ECHO.S_ITS ---
[facility] +---------+ : : [address] : : : : [id number] : : : : Phone: [phone]+ Echocardiogram Report + + :Name: HELEN CABEZAS Study Date: 05/07/2022 Height: 73 in : [facility] ReadingLocation: Weight: 260 lb : : Gender: Male BSA: 2.4 m2 : :: 1965 Age: 56 yrs BP: 151/96 mmHg: :Reason For Study: Hypertension : :Ordering Physician: ANUM, : :TYLER Performed By: Omkar Jorge : :Referring: TYLER DE LEON : + + Interpretation Summary 1) Normal left ventricular thickness, size, wall motion, and systolic function (EF 55-60%). 2) Normal right ventricular size and function. 3) There is mild aortic regurgitation. 4) No prior Echo available for comparison. Procedure: A two-dimensional transthoracic echocardiogram with color flow and Doppler was performed. The study quality was technically adequate. There is no prior echocardiogram noted for this patient. Left Ventricle: The left ventricle is normal in size and wall thickness. Left ventricular systolic function is normal. The ejection fraction is estimated to be 55-60%. There are no focal wall motion abnormalities. Diastolic parameters suggest probable normal left ventricular diastolic function and normal filling pressures. Right Ventricle: The right ventricle is normal in size and function. Atria: Both atria are normal in size. The interatrial septum grossly appears intact with no obvious evidence for an atrial septal defect. Mitral Valve: There is mild mitral annular calcification. There is no mitral regurgitation noted. Aortic Valve: The aortic valve is mildly calcified. The aortic valve opens well. There is no aortic valve stenosis. There is mild aortic regurgitation. Tricuspid Valve: The tricuspid valve is normal in structure and function. There is mild tricuspid regurgitation. The right ventricular systolic pressure is estimated to be at least 24 mmHg based on an estimated right atrial pressure of 3 mm Hg. Pulmonic Valve: The pulmonic valve is normal in structure and function. There is no pulmonic valvular regurgitation. Great Vessels: The aortic root is normal size. The dimensions of the ascending aorta are normal. The IVC is of normal diameter and collapses greater than 50% with a sniff. This suggests a low right atrial pressure of 3 mm Hg. Pericardium/ Pleura There is no pericardial effusion. There is no pleural effusion. MMode/2D Measurements & Calculations LVIDd: 5.7 cm LVOT diam: 2.4 cm LVIDs: 4.0 cm Ao root diam: 3.7 cm FS: 29.8 % asc Aorta Diam: 3.6 cm IVSd: 1.1 cm LVPWd: 1.0 cm LV mcclure. diameter/BSA (cm/m^2): 2.4 LV sys. diameter/BSA (cm/m^2): 1.7 LA dimension: 3.8 cm RA long axis: 5.5 cm LA A2 area: 25.4 cm2 LA A4 area: 19.4 cm2 LA length (vol): 5.8 cm LA vol: 72.1 ml LA vol index: 30.0 ml/m2 TAPSE_phl: 2.0 cm Doppler Measurements & Calculations Ao V2 max: 110.0 cm/sec LVOT Max Zan: 84.9 cm/sec Ao V2 mean: 70.6 cm/sec LV V1 max P.9 mmHg Ao max P.0 mmHg LV V1 VTI: 21.5 cm Ao mean P.0 mmHg GEETHA(I,D): 4.5 cm2 Ao V2 VTI: 21.6 cm GEETHA(V,D): 3.5 cm2 sev ratio: 1.00 GEETHA indexed to BSA (cm^2/m^2): 1.9 MV E max zan: 82.3 cm/sec TR max zan: 229.0 cm/sec MV A max zan: 74.6 cm/sec TR max P.0 mmHg MV E/A: 1.1 Med Peak E' Zan: 6.2 cm/sec E/E' med: 13.3 Lat Peak E' Zan: 10.5 cm/sec E/E' lat: 7.8 E/e' average: 10.6 MV dec time: 0.19 sec SV(LVOT): 97.3 ml AV VR_phl: 0.77 GEETHA(VTI)/BSA_phl: 1.9 MV P1/2t-pr_phl: 55.0 msec Reading Physician:12:36 PM
== END ==
PROVIDERS: Family Provider Internal Medicine; PCP Internal Medicine; Referring Provider Internal Medicine Cardiovascular Disease; Visit Provider Internal Medicine Cardiovascular Disease
DX: I10 Essential (primary) hypertension; I08.2 Rheumatic disorders of both aortic and tricuspid valves
CPT/HCPCS: 93306

== ENCOUNTER → 2023-01-23 07:35 | Outpatient (CLI) | payer OTHER, SELFPAY ==
[2021-12-24 22:01] VITALS: BMI 34.4
--- NOTE | 2023-01-24 01:52 | DI.NM.S_ITS ---
DATE OF SERVICE: 01/23/2023 PROCEDURE: Exercise treadmill stress test without imaging. ORDERING PROVIDER: Jarek De Leon MD INDICATIONS: The patient is a 57-year-old male with a history of hypertension, hyperlipidemia, and palpitations. FINDINGS: 1. The patient was able to exercise for 10 minutes 2 seconds on a standard Mane protocol suggesting good exercise capacity with an NICOLE of -11%, achieving 10.7 METS. 2. He had a normal heart rate response to exercise, achieving a maximum heart rate of 172 bpm (107% of his predicted maximum). He had a borderline hypertensive blood pressure response with a resting blood pressure of 140/84, increasing to a maximum of 204/98. 3. He had no chest discomfort or anginal symptoms. 4. His resting EKG shows sinus rhythm with normal ST segments. There were no significant ST segment shifts or arrhythmias with stress, although he had rare isolated PVCs in recovery. IMPRESSION: 1. Normal exercise treadmill study for ischemia. 2. Good exercise capacity without angina. He had rare isolated PVCs in recovery, but no other arrhythmias. Arturo Riley - VALARIE/maximilian/charlene doc#: [id number]/job#: [id number] dd: 01/23/2023 16:51:00 dt: 01/24/2023 01:28:00 DICTATING MD/COPIES TO: Marc Campos MD; Jarek De Leon MD COPIES MNE: AYUSH;
== END ==
PROVIDERS: Family Provider Internal Medicine; PCP Internal Medicine; Referring Provider Internal Medicine Cardiovascular Disease; Visit Provider Internal Medicine Cardiovascular Disease
DX: I10 Essential (primary) hypertension (principal); I47.1 Supraventricular tachycardia; E78.5 Hyperlipidemia, unspecified; R00.2 Palpitations
CPT/HCPCS: 93017

== ENCOUNTER 2023-12-22 19:01 | Emergency (ER) | payer OTHER, SELFPAY ==
[2021-12-24 22:01] VITALS: BMI 34.4
[2023-12-22 19:03] VITALS: BP 155/86; PULSE 94; RESP 16; TEMP 37.2; O2SAT 93; BMI 36.3
[2023-12-22 19:39] VITALS: TEMP 37.3
--- NOTE | 2023-12-22 19:54 | ED_ITS ---
HPI - Male Genitourinary General Chief complaint: Urogenital-Male Stated complaint: bladder infection Time Seen by Provider: 12/22/23 19:14 Source: patient Mode of arrival: Ambulatory History of Present Illness HPI Narrative: Patient is a 58-year-old male with history of BPH presenting today with painful frequent urination ongoing for about the last 4 days. He has had a few bladder infections in the past. It is not uncommon for him. He is followed by [facility] urology he has an appointment coming up in January. He was having some difficulty with urination however he was able to take a shower in order to urinate. He reports he took for showers to urinate today. He took some azo to help with his burning sensation. He has had mild fever the 1st 2 days no fever today or yesterday. He is able to eat or drink. He feels like he has some mild abdominal discomfort but overall feels okay. He currently has a Holter monitor on he is frequent PACs and PVCs he is followed by cardiology Dr. De Leon. Related Data Home Medications Medication Instructions Recorded Confirmed tamsulosin 0.4 mg capsule (Flomax) 0.4 mg PO PRN ##0 08/05/12 12/24/21 lisinopril 20 mg tablet 20 mg PO BID 12/24/21 12/24/21 metformin 500 mg tablet 250 mg PO DAILY PRN Hypoglycemia 12/24/21 12/24/21 metoprolol tartrate 50 mg tablet 50 mg PO BID 12/24/21 12/24/21 Previous Rx's Medication Instructions Recorded dexamethasone 6 mg tablet 6 mg PO DAILY #3 tabs 12/25/21 escitalopram oxalate 10 mg tablet 10 mg PO DAILY #30 tabs 12/25/21 (Lexapro) ciprofloxacin HCl 500 mg tablet 500 mg PO BID #14 tabs 12/22/23 (Cipro) phenazopyridine 100 mg tablet 100 mg PO TID PRN pain 6 doses #6 12/22/23 (Pyridium) tabs Allergies Allergy/AdvReac Type Severity Reaction Status Date / Time No Known Drug Allergies Allergy Verified 12/22/23 19:07 Patient History Medical History Obesity (BMI 30.0-34.9) Essential hypertension Diabetes mellitus type 2 in obese BPH (benign prostatic hyperplasia) COVID-19 Surgical History History of right hip replacement Family History Daughter No problems noted. Social History marital status: household members: spouse lives independently: Yes Smoking Status: Never smoker alcohol intake: current Smoking Status: Never smoker alcohol intake frequency: holidays/special occasions only Substance Use Type: does not use Exam Initial Vital Signs Initial Vital Signs: Vital Signs Temperature 98.9 F 12/22/23 19:03 Pulse Rate 94 H 12/22/23 19:03 Respiratory Rate 16 12/22/23 19:03 Blood Pressure 155/86 H 12/22/23 19:03 Pulse Oximetry 93 12/22/23 19:03 Oxygen Delivery Method Room Air 12/22/23 19:03 GENERAL: Alert pleasant very well-appearing male and in no acute distress. HEENT: Head atraumatic,EOMI, pupils reactive, face symmetric, moist mucous membranes CARDIOVASCULAR: Regular rate and rhythm without murmurs, rubs or gallops. RESPIRATORY: Breath sounds equal bilaterally, no wheezes rales or rhonchi. ABDOMEN: Soft, minimal suprapubic tenderness no guarding rebound : No CVA tenderness EXTREMITIES: Normal range of motion, no clubbing or edema. Neurovascularly intact NEUROLOGICAL: Alert and oriented x4.Normal gait and speech. SKIN: Warm, dry, no laceration, no petechiae, no rashes or lesions. Course Orders Ordered: ED Orders 12/22/23 19:15 Urinalysis and Microscopic Stat Urine Culture Stat Discontinued Medications Ciprofloxacin (Ciprofloxacin 250 Mg Tablet) 500 mg PO NOW ONE Stop: 12/22/23 20:20 Last Admin: 12/22/23 20:33 Dose: 500 mg Documented By: ROSELIA Vital Signs Vital signs: Vital Signs - 8 hr 12/22/23 19:03 12/22/23 19:39 Temperature 98.9 F 99.2 F Pulse Rate 94 H Respiratory Rate 16 Blood Pressure 155/86 H Pulse Oximetry 93 Oxygen Delivery Method Room Air MDM - Male Genitourinary Lab Data Labs: Lab Results 12/22/23 Range/Units 19:15 Urine Color [place] Urine Appearance Cloudy Urine pH TNP Ur Specific Isabel TNP Urine Protein TNP Urine Glucose (UA) TNP Urine Ketones TNP Urine Occult Blood TNP Urine Nitrate TNP Urine Bilirubin TNP Urine Urobilinogen TNP Ur Leukocyte Esterase TNP Urine RBC None seen (0-5/HPF) Urine WBC >100/hpf H (0-5/HPF) Ur Squamous Epith Cells None seen (0-5/HPF) Urine Bacteria Many (>30) H (None) Ur Culture Indicated? Specimen cultured Vol Urine Centrifuged 10ml (spun) MDM Narrative Medical decision making narrative: Patient is an overall well-appearing 58-year-old male who does have a history of UTIs. He did have fever 2 days ago but is afebrile here he has had 2 full documented complete set of vitals without hypotension fever tachycardia or evidence of SIRS. He has no flank pain. Bladder scan did not show more than 60 mL multiple times. He is able to urinate he gave us a urine sample is positive for UTI. His abdomen is soft. At this time not meeting SIRS sepsis or abuse criteria. I think reasonable to start him on antibiotics. If symptoms worsen he needs to come back and return for further workup. Modified Early Warning Score (MEWS) for Clinical Deterioration from [employer] on 12/22/2023 All calculations should be rechecked by clinician prior to use RESULT SUMMARY: 1 points 7.9% chance of ICU admission or within 60 days. INPUTS: Systolic BP ?> 0 = 101-199 mmHg Heart rate ?> 0 = 51-100 bpm Respiratory rate ?> 1 = 15-20 bpm Temperature ?> 0 = 35?38.4?C / 95?101.1?F AVPU Score ?> 0 = Alert Discharge Plan Departure Patient Disposition: Home Clinical Impression: Urinary tract infection
[2023-12-22 20:13] LABS: Appearance Urine UA Cloudy; Urine Volume 10mL (spun)
[2023-12-22 20:14] LABS: Bacteria Urine Many (>30); Color Urine UA ORANGE; Culture Indicated Urine Specimen Cultured; RBC Urine None Seen (0-5/HPF); Squamous Epithelial Cell Urine None Seen (0-5/HPF); WBC Urine >100/HPF (0-5/HPF)
[2023-12-22] MEDS: CIPROFLOXACIN 250 MG TABLET 500 MG PO (20:33)
[2023-12-22 20:45] VITALS: BP 140/84; PULSE 80; RESP 18; TEMP 37.1; O2SAT 95
== END 2023-12-22 20:45 | disposition home or self-care (01) ==
LOC: ED 20:26 → AC 20:38
PROVIDERS: Emergency Provider Emergency Medicine; Family Provider Internal Medicine; PCP Internal Medicine
DX: N39.0 Urinary tract infection, site not specified (principal)
CPT/HCPCS: 81001; 87086; 99283

== ENCOUNTER 2024-09-15 07:04 | Day surgery (SDC) | payer OTHER, SELFPAY ==
[2021-12-24 22:01] VITALS: BMI 34.4
[2024-09-15 07:31] VITALS: BP 137/82; PULSE 83; RESP 17; TEMP 36.4; O2SAT 95
--- NOTE | 2024-09-15 08:13 | PM.HP.1 ---
History of Present Illness History of Present Illness Date Patient Seen: 09/15/24 Time Patient Seen: 08:14 Chief complaint: Colonoscopy Narrative: Arturo is a 59-year-old gentleman who is here for a colonoscopy. His last was about 7 years ago and he had 1 polyp removed. No family history of colon cancer. [facility] Medical History Obesity (BMI 30.0-34.9) Essential hypertension Diabetes mellitus type 2 in obese BPH (benign prostatic hyperplasia) COVID-19 Surgical History History of right hip replacement Family History Daughter No problems noted. Social History marital status: household members: spouse lives independently: Yes Smoking Status: Never smoker alcohol intake: current Meds Home Medications and Allergies Home Medications Medication Instructions Recorded Confirmed Type tamsulosin 0.4 mg capsule (Flomax) 0.4 mg PO PRN ##0 08/05/12 09/15/24 History lisinopril 20 mg tablet 20 mg PO BID 12/24/21 09/15/24 History metformin 500 mg tablet 250 mg PO DAILY PRN Hypoglycemia 12/24/21 09/15/24 History metoprolol tartrate 50 mg tablet 50 mg PO BID 12/24/21 09/15/24 History hydrochlorothiazide 25 mg tablet 25 mg PO DAILY 09/15/24 09/15/24 History rosuvastatin 5 mg PO DAILY 09/15/24 09/15/24 History Allergies Allergy/AdvReac Type Severity Reaction Status Date / Time No Known Drug Allergies Allergy Verified 09/15/24 07:17 Exam Vital Signs (past 8 hours): - 09/15/24 07:31 Temperature 97.5 F L Pulse Rate 83 Respiratory Rate 17 Blood Pressure 137/82 Pulse Oximetry 95 Oxygen Delivery Method Room Air Oxygen Delivery Method Room Air Const General: No acute distress Resp Effort & Inspection: normal respiratory effort Assessment & Plan Assessment and plan (1) History of colon polyps: Status: Acute Plan We reviewed the risks and benefits of colonoscopy and he would like to proceed. Time-Based Coding :: [TOTAL MINUTES] spent with patient and on the chart (including review of chart, obtaining history, exam, reviewing outside data, placing orders, documenting exam and treatment plan, and counseling patient) on [DATE].
[2024-09-15 08:39] VITALS: BP 102/66; PULSE 79; RESP 13; TEMP 36.6; O2SAT 93
--- NOTE | 2024-09-15 08:44 | PM.OP.COLON ---
Operative Date/Time/Diagnoses Date of procedure: 09/15/24 Time of procedure: 08:44 Pre-op diagnosis: Colon cancer screening Post-op diagnosis: same Procedure & Clinicians Study performed: Colonoscopy Same procedure as scheduled: Yes Surgeon: Ayo Newton Procedure Notes Procedure in detail: Surgeon: Ayo Newton MD Anesthesia: Karoline Pham CRNA Procedure: The patient was brought to the endoscopy suite, placed in left lateral decubitus position. The patient was connected to monitoring devices. A time-out was performed. Sedation was administered. Once the patient was adequately sedated, a digital rectal exam was performed and was normal. The scope was then inserted and advanced to the cecum where the appendiceal orifice was identified and photographed. The scope was then slowly withdrawn over greater than 6 minutes. The mucosa was thoroughly inspected. No abnormalities were found. The scope was retroflexed in the rectum. The scope was straightened and removed. The patient was awakened and brought to recovery. Scope withdrawal time: 6 minutes Sedation time: 11 minutes EBL: 0 Findings: Normal colon Post-procedure Recommendations: Colonoscopy in 10 years Disposition: PACU
[2024-09-15 08:45] VITALS: BP 94/61; PULSE 74; RESP 15; O2SAT 94
[2024-09-15 08:50] VITALS: BP 120/79; PULSE 71; RESP 15; TEMP 36.3; O2SAT 94
== END 2024-09-15 09:00 | disposition home or self-care (01) ==
PROVIDERS: Family Provider Internal Medicine; PCP Internal Medicine; Referring Provider Surgery; Visit Provider Surgery
PROC: 0DJD8ZZ Inspection of Lower Intestinal Tract, Via Natural or Artificial Opening Endoscopic (ICD-10-PCS; CPT 45378; principal; 2024-09-15 08:15)
DX: Z12.11 Encounter for screening for malignant neoplasm of colon (principal); Z86.0100 Personal history of colon polyps, unspecified
CPT/HCPCS: 45378; J2704

== ENCOUNTER → 2024-09-19 13:46 | Outpatient (CLI) | payer OTHER, SELFPAY ==
[2021-12-24 22:01] VITALS: BMI 34.4
--- NOTE | 2024-09-19 13:47 | DI.MRI.S_ITS ---
PROCEDURE: MR PELVIC PROSTATE PROTOCOL INDICATIONS: ELEVATED PSA TECHNIQUE: Coronal HASTE, axial T1 FSE with fat saturation, 3-plane nonbreath-hold T2 FSE. After the administration of contrast, dynamic axial, delayed axial and coronal VIBE or 2-D FLASH with fat saturation through the pelvis. Diffusion weighted imaging and ADC was performed. COMPARISON: None. FINDINGS: Image quality: Diffusion weighted and dynamic contrast enhanced images are diagnostic. Prostate: Gland size is 6.1 x 5.2 x 5.7 cm; ellipsoid gland volume is 93 mL. Lesion 1: Location: Left peripheral zone, mid gland to apex, on axial series 5, image 16 and coronal series 6, image 19. Size: 1.6 x 1.8 cm. T2W signal: Hypointense. DWI signal: Markedly hyperintense. ADC signal: Markedly hypointense. Enhancement: Yes. Extracapsular extension: Broad-based capsular contact. Mild capsular irregularity into the neurovascular bundle on the left (series 5, image 15). PI-RADS score: 5 Genitourinary system: Bladder wall thickness is normal. Distal ureters are non distended. Bowel and peritoneum: No pathologic free pelvic fluid. Inferior colon and small bowel loops are normal in caliber. Colonic diverticulosis without evidence of diverticulitis. Nodes and vessels: Mildly enlarged left external iliac chain node measuring 9 millimeter short axis (series 222, image 54) Soft tissues: No inguinal hernias. Bones: Marrow demonstrates normal overall signal, without lesions to suggest metastases. Postsurgical changes of a right hip arthroplasty. Mild edematous changes and enhancement surrounding the arthroplasty in the right ischium. IMPRESSION: PI-RADS 5 lesion in the left peripheral zone of the mid gland to apex. There is broad-based capsular contact and mild capsular irregularity, with T2 hypointense signal extending into the neurovascular bundle. Findings are highly concerning for extraprostatic extension. 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 Consider correlation with PSA. No evidence of osseous metastatic disease. Dictated by: David Lorenzo M.D. on 09/21/2024 at 10:08 Approved by: David Lorenzo M.D. on 09/21/2024 at 10:14
== END ==
PROVIDERS: Family Provider Internal Medicine; PCP Internal Medicine; Referring Provider Physician Assistant Medical; Visit Provider Physician Assistant Medical
DX: N40.0 Benign prostatic hyperplasia without lower urinary tract symptoms (principal); R97.20 Elevated prostate specific antigen [PSA]; N42.9 Disorder of prostate, unspecified; K57.90 Diverticulosis of intestine, part unspecified, without perforation or abscess without bleeding
CPT/HCPCS: 72197; A9579

== ENCOUNTER 2025-04-25 12:39 | Emergency (ER) | payer OTHER, SELFPAY ==
[2021-12-24 22:01] VITALS: BMI 34.4
[2025-04-25] VITALS (12 sets, daily range): BP systolic 133–165; BP diastolic 71–89; PULSE 57–69; RESP 15–21; TEMP 36.5–36.8; O2SAT 95–100; BMI 33.6
--- NOTE | 2025-04-25 13:52 | ED_ITS ---
HPI - Eye Problem General Chief complaint: Eye Problems Stated complaint: L Eye Blindness Time Seen by Provider: 04/25/25 12:57 Source: patient Mode of arrival: Ambulatory Related Data Home Medications Medication Instructions Recorded Confirmed tamsulosin 0.4 mg capsule (Flomax) 0.4 mg PO PRN ##0 08/05/12 09/15/24 lisinopril 20 mg tablet 20 mg PO BID 12/24/21 09/15/24 metformin 500 mg tablet 250 mg PO DAILY PRN Hypoglycemia 12/24/21 09/15/24 metoprolol tartrate 50 mg tablet 50 mg PO BID 12/24/21 09/15/24 hydrochlorothiazide 25 mg tablet 25 mg PO DAILY 09/15/24 09/15/24 rosuvastatin 5 mg PO DAILY 09/15/24 09/15/24 Allergies Allergy/AdvReac Type Severity Reaction Status Date / Time No Known Drug Allergies Allergy Verified 04/25/25 12:41 Review of Systems Review of Systems ROS Unobtainable: All systems reviewed & are unremarkable except as noted in HPI and below Constitutional Constitutional: Denies chills, Denies fever(s) and Denies headache(s) Eyes Eyes: Reports blurry vision, Reports change in vision and Reports loss of vision ENT Ears, Nose, Mouth, and Throat: Denies headache(s) Cardiovascular Cardiovascular: Denies chest pain Neurologic Neurologic: Denies headache(s) and Reports loss of vision Patient History Medical History Obesity (BMI 30.0-34.9) Essential hypertension Diabetes mellitus type 2 in obese BPH (benign prostatic hyperplasia) COVID-19 Surgical History History of right hip replacement Family History Daughter No problems noted. Social History marital status: household members: spouse lives independently: Yes Smoking Status: Never smoker alcohol intake: current Smoking Status: Never smoker alcohol intake frequency: holidays/special occasions only Exam Initial Vital Signs Initial Vital Signs: Vital Signs Temperature 97.7 F 04/25/25 12:41 Pulse Rate 64 04/25/25 12:41 Respiratory Rate 17 04/25/25 12:41 Blood Pressure 165/81 H 04/25/25 12:41 Pulse Oximetry 97 04/25/25 12:41 Oxygen Delivery Method Room Air 04/25/25 12:41 Const General: cooperative, No acute distress and No ill appearing [facility] Head: normocephalic Ears: hearing grossly normal bilaterally Eyes Visual Egan: abnormal by confrontation upper inner visual field cut left and lower inner visual field cut left Pupils: PERRL EOM: EOM intact bilaterally Other: Pressure 21 on the right and 19 on the left Resp Effort & Inspection: normal respiratory effort Cardio Rate: regular rate Rhythm: regular rhythm GI Inspection: normal to inspection and non-distended Skin General: no rashes or lesions noted Neuro General: patient alert, patient oriented x3 and moves all extremities Extrem General: normal to inspection and full ROM Psych Appearance: grossly normal Mental Status: mental status grossly normal Course Vital Signs Vital signs: Vital Signs - 8 hr 04/25/25 12:41 Temperature 97.7 F Pulse Rate 64 Respiratory Rate 17 Blood Pressure 165/81 H Pulse Oximetry 97 Oxygen Delivery Method Room Air MDM - Eye Problem MDM Narrative Medical decision making narrative: After history and exam, concern for retinal detachment. MDM Differential considered: Includes but not limited to posterior vitreous detachment, retinal tear or retinal detachment, posterior uveitis, may also represent vitreous hemorrhage, macular degeneration, migraine, amaurosis fugax, central retinal artery occlusion, glaucoma Imaging studies independently reviewed: Bedside ultrasound demonstrating hyperechoic membrane floating in the vitreous chamber over the lateral globe Consultations: Ophthalmology flight operations specialist, Dr Chapman at [facility] recommends transfer [place] [facility] [place]charge Plan Departure Patient Disposition: [facility] Clinical Impression: Left retinal detachment Activity Restrictions/Additional Instructions: You were seen in the emergency department for your vision changes. Evaluation here suggest that you have a retinal detachment. Please go directly to [facility] Emergency Department, they are expecting you and the ophthalmology team will evaluate you upon arrival. Prescriptions: No Action tamsulosin [Flomax] 0.4 MG capsule,extended release 24hr 0.4 mg PO PRN Qty: 0 metformin 500 mg Tablet 250 mg PO DAILY PRN (Reason: Hypoglycemia) Rx Instructions: pt checks blood sugar QAM and if >120 takes 250mg metformin lisinopril 20 mg Tablet 20 mg PO BID metoprolol tartrate 50 mg Tablet 50 mg PO BID hydrochlorothiazide 25 mg Tablet 25 mg PO DAILY rosuvastatin 5 mg PO DAILY Referrals: Theresa Johnson MD [Primary Care Provider] -
--- NOTE | 2025-04-25 14:47 | PC.NURSE ---
Pt a&ox4. Denies any pain or changes in vision at this time. States vision has been the same since he arrived.
== END 2025-04-25 15:43 | disposition short-term general hospital (02) ==
PROVIDERS: Emergency Provider Student in an Organized Health Care Education/Training Program; Family Provider Internal Medicine; PCP Internal Medicine
DX: H33.22 Serous retinal detachment, left eye (principal)
CPT/HCPCS: 99283

== ENCOUNTER 2025-05-09 20:24 | Emergency (ER) | payer OTHER, SELFPAY ==
[2021-12-24 22:01] VITALS: BMI 34.4
[2025-05-09 20:31] VITALS: BP 138/81; PULSE 102; RESP 18; TEMP 37.5; O2SAT 97; BMI 33.0
--- NOTE | 2025-05-09 20:43 | EKG_ITS ---
[place] [id number] [place] [id number] Test Date: 2025-05-09 Pat Name: Arturo Riley Department: [facility] Room: Gender: Male Inter Com Servicer: LETA : [id number] Requested By: Order Number: [id number] Reading MD: Kumar Oconnor MD Measurements Intervals [place] Rate: 93 P: -13 AR: 172 QRS: -11 QRSD: 94 T: -16 QT: 328 QTc: 407 Interpretive Statements Normal sinus rhythm Moderate voltage criteria for LVH, may be normal variant ( R in aVL , Baljit product ) Inferior infarct , age undetermined Electronically Signed On 05-10-2025 7:42:40 PDT by Kumar Oconnor MD
--- NOTE | 2025-05-09 20:43 | DI.RAD.S_ITS ---
PROCEDURE: XR CHEST 1V INDICATIONS: suspected sepsis TECHNIQUE: One view of the chest was acquired. COMPARISON: [facility], CR, XR CHEST 1V, 12/24/2021, 16:44. FINDINGS: Surgical changes and devices: None. Lungs and pleura: Lungs are clear. No pleural effusions or pneumothorax. Mediastinum: Mediastinal contours appear normal. Heart size is normal. Bones and chest wall: No suspicious bony lesions. Overlying soft tissues appear unremarkable. IMPRESSION: No acute cardiopulmonary abnormalities or focal consolidation. Dictated by: Kalen Gonzalez M.D. on 05/09/2025 at 20:59 Approved by: Kalen Gonzalez M.D. on 05/09/2025 at 20:59
[2025-05-09 21:19] LABS: Add Manual Diff / Slide Review NO; Basophils Absolute Auto 100 /uL (0-100); Basophils Percent Auto 0.6 % (0-2); Eosinophils Absolute Auto 0 /uL (0-450); Eosinophils Percent Auto 0.2 % (2-4); Hematocrit 36.3 % (41-53); Hemoglobin 12.6 g/dL (13.5-17.5); Lymphocytes Absolute Auto 600 /uL (1100-4500); Lymphocytes Percent Auto 5.9 % (25-40); Mean Corpuscular HGB Conc 34.8 % (30-36); Mean Corpuscular Hemoglobin 30.2 PG (26-34); Mean Corpuscular Volume 86.9 fL (80-100); Monocytes Absolute Auto 1100 /uL (0-900); Monocytes Percent Auto 10.3 % (3-14); Neutrophils Absolute Auto 9000 /uL (1500-7000); Platelet Count 228 X10^3/uL (150-400); Red Blood Cell Count 4.18 X10^6/uL (4.5-5.9); Red Cell Distribution Width 14.5 % (11.6-14.8); White Blood Cell Count 10.9 X10^3/uL (4.5-11.0)
[2025-05-09 21:28] LABS: INR 1.3 (0.9-1.3); Prothrombin Time 14.8 SECONDS (9.4-12.5)
[2025-05-09 21:31] LABS: PTT Partial Thromboplastin Tim 36 SECONDS (25.1-36.5)
[2025-05-09 21:32] LABS: Lactate (Lactic Acid) 1.1 mmol/L (0.7-2.1)
[2025-05-09 21:34] LABS: Alanine Aminotransferase 50 IU/L (<50); Albumin 3.9 g/dL (3.5-5.0); Albumin Globulin Ratio 1.1 (1.0-2.8); Alkaline Phosphatase 312 U/L (38-126); Aspartate Aminotransferase 44 IU/L (17-59); BUN Creatinine Ratio 12.6 (6-22); Bilirubin Total 2.6 mg/dL (0.2-1.3); Blood Urea Nitrogen 11 mg/dL (9-20); Calcium 8.5 mg/dL (8.4-10.2); Carbon Dioxide 24 mmol/L (22-32); Chloride 96 mmol/L (98-107); Estimated Glomerular Filt Rate > 60 mL/min (>60); Globulin 3.5 g/dL (1.7-4.1); Glucose 164 mg/dL (70-99); HEMOLYSIS < 15 (0-50); Lipase 66 U/L (23-300); Potassium 3.3 mmol/L (3.4-5.1); Sodium 132 mmol/L (137-145); Total Protein 7.4 g/dL (6.3-8.2)
[2025-05-09] MEDS: SODIUM CHLORIDE 0.9% 1,000 ML 1000 ML IV (21:40)
[2025-05-09 21:50] LABS: Procalcitonin 0.348 ng/mL (<0.5)
[2025-05-09 22:02] VITALS: PULSE 92; O2SAT 95
[2025-05-09 22:04] VITALS: BP 147/76; PULSE 93; O2SAT 96
[2025-05-09 22:15] LABS: Bacteria Urine None Seen; Culture Indicated Urine Cult Not Indicated; Ictotest Urine Negative (Negative); RBC Urine 5-10/HPF (0-5/HPF); Squamous Epithelial Cell Urine 0-1 /HPF (0-5/HPF); Urine Volume 10mL (spun); WBC Urine None Seen (0-5/HPF)
--- NOTE | 2025-05-09 22:22 | ED.RECABL ---
HPI - Recheck/Abnormal Lab/Rx General Chief Complaint: Recheck/Abnormal Lab/Rx Stated Complaint: fever,bladder infection, possible dehydration Time Seen by Provider: 05/09/25 22:22 Source: patient Mode of arrival: Ambulatory History of Present Illness HPI narrative: 59-year-old male with a past medical history of diabetes hypertension hyperlipidemia comes into the ED from home for evaluation of fever. He states that yesterday he was diagnosed with a UTI and is having persistent fevers despite being on antibiotics, he states that he is worried he might have sepsis. Patient denying any other issues or complications at this time. He states that he had not taken any medication for these fevers. Here in the emergency department patient is afebrile, Related Data Home Medications ?Medication ?Instructions ?Recorded ?Confirmed tamsulosin 0.4 mg capsule (Flomax) 0.4 mg PO PRN ##0 08/05/12 09/15/24 lisinopril 20 mg tablet 20 mg PO BID 12/24/21 09/15/24 metformin 500 mg tablet 250 mg PO DAILY PRN Hypoglycemia 12/24/21 09/15/24 metoprolol tartrate 50 mg tablet 50 mg PO BID 12/24/21 09/15/24 hydrochlorothiazide 25 mg tablet 25 mg PO DAILY 09/15/24 09/15/24 rosuvastatin 5 mg PO DAILY 09/15/24 09/15/24 Allergies Allergy/AdvReac Type Severity Reaction Status Date / Time No Known Drug Allergies Allergy Verified 05/09/25 20:31 Review of Systems Review of Systems Narrative: General: Positive fever, denies chills, weight loss HEENT: Denies headache, eye drainage, eye irritation, head trauma, sore throat, voice change Cardiovascular: Denies any chest pain, palpitations, tachycardia Respiratory: Denies any shortness of breath, cough, wheeze, stridor GI/: Denies any abdominal pain, nausea, vomiting, diarrhea, bright red blood per rectum, melanotic stools, urinary frequency, urinary retention, dysuria, hematuria MSK: Denies any joint pain, muscle pains, swelling Skin: Denies any rashes, lesions, discoloration Neuro: Denies any headache, lightheadedness, dizziness, fainting, weakness Psych: Denies SI/HI Patient History Medical History Obesity (BMI 30.0-34.9) Essential hypertension Diabetes mellitus type 2 in obese BPH (benign prostatic hyperplasia) COVID-19 Surgical History History of right hip replacement Family History Daughter No problems noted. Social History marital status: household members: spouse lives independently: Yes alcohol intake: current alcohol intake frequency: holidays/special occasions only Exam Narrative Exam Narrative: General: Cooperative, well-developed, not in acute distress HEENT: Normocephalic, atraumatic, PERRLA, normal sclera, eyelids normal Neck: Active full range of motion, atraumatic Chest: Normal to inspection, negative crepitus, no overlying erythema ecchymosis Respiratory: Normal respiratory effort, not in acute respiratory distress, clear to auscultation bilaterally negative cough, wheeze, tachypnea, rhonchi, rales Cardiology: Regular rate rhythm negative gallop, murmur, rubs GI/: No tenderness to palpation, soft, non rigid, normal to inspection, exam deferred MSK: Full active range of motion in all 4 extremities, atraumatic, no tenderness to palpation of any bony prominences Skin: No rashes or lesions noted Neuro: Alert awake oriented x3, moves all 4 extremities spontaneously, cranial nerves intact, able to answer all questions appropriately follows commands appropriately Psych: Cooperative, negative suicidal or homicidal ideations Initial Vital Signs Initial Vital Signs: Vital Signs Temperature 99.5 F 05/09/25 20:31 Pulse Rate 102 H 05/09/25 20:31 Respiratory Rate 18 05/09/25 20:31 Blood Pressure 138/81 05/09/25 20:31 Pulse Oximetry 97 05/09/25 20:31 Oxygen Delivery Method Room Air 05/09/25 20:31 Course Orders Ordered: ED Orders 05/09/25 20:43 XR chest 1V Stat EKG-12 Lead Stat RT Consult Eval and Treat NOW 05/09/25 21:04 Complete Blood Count AUTO DIFF Stat Comprehensive Metabolic Panel Stat Lactate (Lactic Acid) Stat Lipase Stat PTT Partial Thromboplastin Donald Stat Procalcitonin Stat Prothrombin Time INR Stat 05/09/25 21:34 Ictotest Urine Stat Urine Microscopic Stat 05/09/25 22:05 Blood Culture Stat Ondansetron HCl (Ondansetron 4 Mg/2 Ml Inj) 4 mg IV NOW PRN PRN Reason: Nausea And Vomiting Ondansetron HCl (Ondansetron 4 Mg Odt) 4 mg PO NOW PRN PRN Reason: Nausea And Vomiting Discontinued Medications Sodium Chloride (Normal Saline 0.9%) 1,000 mls @ 1,000 mls/hr IV BOLUS ONE Stop: 05/09/25 21:42 Last Admin: 05/09/25 21:40 Dose: 1,000 mls/hr Documented By: CHUCHO Vital Signs Vital signs: Vital Signs - 8 hr 05/09/25 20:31 Temperature 99.5 F Pulse Rate 102 H Respiratory Rate 18 Blood Pressure 138/81 Pulse Oximetry 97 Oxygen Delivery Method Room Air MDM - Recheck/Abnormal Lab/Rx Differential Diagnosis Differential diagnosis: Likely other (Urinary tract infection, electrolyte abnormality, sepsis) Lab Data 05/09/25 21:04 05/09/25 21:04 Labs: Lab Results 05/09/25 05/09/25 Range/Units 21:04 21:34 WBC 10.9 (4.5-11.0) X10^3/uL RBC 4.18 L (4.5-5.9) X10^6/uL Hgb 12.6 L (13.5-17.5) g/dL Hct 36.3 L (41-53) % MCV 86.9 (80-100) fL MCH 30.2 (26-34) PG MCHC 34.8 (30-36) % RDW 14.5 (11.6-14.8) % Plt Count 228 (150-400) X10^3/uL Neut % (Auto) 83.0 H (50-75) % Lymph % (Auto) 5.9 L (25-40) % Nicholas % (Auto) 10.3 (3-14) % Eos % (Auto) 0.2 L (2-4) % Baso % (Auto) 0.6 (0-2) % Neut # (Auto) 9000 H (5905-8130) /uL Lymph # (Auto) 600 L (1653-7630) /uL Nicholas # (Auto) 1100 H (0-900) /uL Eos # (Auto) 0 (0-450) /uL Baso # (Auto) 100 (0-100) /uL PT 14.8 H (9.4-12.5) SECONDS INR 1.3 (0.9-1.3) APTT 36 (25.1-36.5) SECONDS Sodium 132 L (137-145) mmol/L Potassium 3.3 L (3.4-5.1) mmol/L Chloride 96 L (98-107) mmol/L Carbon Dioxide 24 (22-32) mmol/L BUN 11 (9-20) mg/dL Creatinine 0.87 (0.66-1.25) mg/dL Estimated GFR > 60 (>60) mL/min BUN/Creatinine Ratio 12.6 (6-22) Glucose 164 H (70-99) mg/dL Lactate 1.1 (0.7-2.1) mmol/L Calcium 8.5 (8.4-10.2) mg/dL Total Bilirubin 2.6 H (0.2-1.3) mg/dL AST 44 (17-59) IU/L ALT 50 H (<50) IU/L Alkaline Phosphatase 312 H (38-126) U/L Total Protein 7.4 (6.3-8.2) g/dL Albumin 3.9 (3.5-5.0) g/dL Globulin 3.5 (1.7-4.1) g/dL Albumin/Globulin Ratio 1.1 (1.0-2.8) Lipase 66 (23-300) U/L Procalcitonin 0.348 (<0.5) ng/mL Ur Bilirubin Confirm Negative (Negative) Urine RBC 5-10/hpf H (0-5/HPF) Urine WBC None seen (0-5/HPF) Ur Squamous Epith Cells 0-1 /hpf (0-5/HPF) Urine Bacteria None seen (None) Ur Culture Indicated? Cult not indicated Vol Urine Centrifuged 10ml (spun) Urine Dip Bedside Urine Glucose Negative Bedside Urine Bilirubin + 1 Bedside Urine Ketone - Negative Urine Specific [place] 1.015 Bedside Urine Occult Blood ++ Bedside Urine pH 6.0 Bedside Urine Protein ++ 100 Bedside Urine Urobilinogen 2+ 4mg Bedside Urine Nitrite - Negative Bedside Urine Leukocytes - Negative Esterase ECG Data Interpretation: EKG interpreted ED physician sinus 93 beats per minute QTC 407, left axis deviation nonspecific ST changes no STEMI MDM Narrative Medical decision making narrative: 59-year-old male with a past medical history of diabetes, hypertension, hyperlipidemia, comes into the ED from home for evaluation of fevers. He states that yesterday he was diagnosed with urinary tract infection, he states that he is having persistent fevers despite taking 24 hours of this antibiotic, states it was high as 100.4. Patient afebrile here in the emergency department. He states that he is not having any other complaints. He states that he was just worried that he might have had sepsis. Patient's lab work not consistent with any leukocytosis, lactate normal, patient not meeting any sepsis criteria, urinalysis not consistent with acute urinary tract infection. Patient is not complaining of any other symptoms such as abdominal pain chest pain shortness of breath, lab work was consistent with a elevated liver function and bilirubin however patient not complaining of any pain nausea and vomiting did inform him to have repeat lab work by his primary care doctor for this. Informed him to continue taking his antibiotics as prescribed, he was given strict return precautions he verbalized understanding of this and agrees to being discharged home with outpatient follow up Discharge Plan Departure Patient Disposition: Home Clinical Impression: Normal exam Activity Restrictions/Additional Instructions: Please continue taking your antibiotics as prescribed Please follow up with your primary care doctor Please read the discharge instructions sheet carefully and bring all papers to all doctor follow-up visits, as it may contain information that your doctor may want to see. Disease processes change and evolve, if your symptoms worsen or if you develop any new symptoms that are concerning to you please return for evaluation. Your evaluation today does not show any evidence of any life-threatening/serious illnesses requiring admission to the hospital or surgery. Please follow-up with your doctor for re-evaluation in approximately 1 day. Seek immediate medical attention for any worrisome symptoms. *If you do not have a primary care provider please contact the [facility] Resource line at [phone]. They will ask some questions about your medical history and help get you set up with a doctor in the community. Prescriptions: No Action tamsulosin [Flomax] 0.4 MG capsule,extended release 24hr 0.4 mg PO PRN Qty: 0 metformin 500 mg Tablet 250 mg PO DAILY PRN (Reason: Hypoglycemia) Rx Instructions: pt checks blood sugar QAM and if >120 takes 250mg metformin lisinopril 20 mg Tablet 20 mg PO BID metoprolol tartrate 50 mg Tablet 50 mg PO BID hydrochlorothiazide 25 mg Tablet 25 mg PO DAILY rosuvastatin 5 mg PO DAILY Referrals: Theresa Johnson MD [Primary Care Provider, Internal Medicine] Stand Alone Forms: Patient Portal/API
[2025-05-09 22:30] VITALS: BP 146/72; PULSE 89; O2SAT 95
== END 2025-05-09 22:48 | disposition home or self-care (01) ==
PROVIDERS: Emergency Provider Student in an Organized Health Care Education/Training Program; Family Provider Internal Medicine; PCP Internal Medicine
DX: R50.9 Fever, unspecified (principal); I10 Essential (primary) hypertension; Z87.440 Personal history of urinary (tract) infections
CPT/HCPCS: 71045; 80053; 81003; 81015; 83605; 83690; 84145; 85025; 85610; 85730; 87040; 93005; 96360; 99283; 99284

== ENCOUNTER 2025-08-17 09:45 | Outpatient (RCR) | payer OTHER, SELFPAY ==
[2021-12-24 22:01] VITALS: BMI 34.4
--- NOTE | 2025-05-04 17:19 | PT.OIE ---
Current Diagnoses Malignant neoplasm of prostate (05/04/25) Unspecified symptoms and signs involving the genitourinary system (05/04/25) Past Medical History (Last Reviewed 12/22/23 @ 20:10 by Tabby Correa DO) BPH (benign prostatic hyperplasia) COVID-19 Diabetes mellitus type 2 in obese Essential hypertension Obesity (BMI 30.0-34.9) Past Surgical History (Last Reviewed 12/22/23 @ 20:10 by Tabby Correa DO) History of right hip replacement Visit Care Team Role Provider Type Theresa Johnson MD Family Provider Physician Primary Care Provider Specialty: Internal Medicine Address: [address], [address], [place], [address] Email: Ajay Severino MD Attending Provider Non-Staff Referring Provider Specialty: Urology Address: [address], [place], [address] Email: Physical Therapy Initial Evaluation PT-OP-A Visit Information Start: 05/04/25 08:12 Freq: Status: Active Protocol: Document 05/04/25 13:00 [facility] (Rec: 05/04/25 17:04 [facility] [id number]) Out-Patient Physical Therapy Visit Information Visit Information Visit Type Initial Evaluation Visit Start Time 13:00 Visit Stop Time 13:45 Visit Number 1 Evaluation Information Evaluation Date 05/04/25 PT-OP-B Current Condition Start: 05/04/25 08:12 Freq: Status: Active Protocol: Document 05/04/25 13:00 [facility] (Rec: 05/04/25 13:30 [facility] [id number]) Current Condition History of Current Condition Onset Date January 2025 Current Complaints urinary leakage that is constant in nature History of Current 59 year old male with hx of prostatectomy 3 months ago Condition in [place]. January 2025( HE is scheduled for radiation and hormone therapy in July Arturo reports he is experiencing incontinence and he has seen very slow improvement since surgery he doesn't leak much at night but he is waking up with a urge to void and the trip from his bed to the bathroom he leaks with his job he isn't always near a bathroom so he does have a clamp he wears but he also had to have retinal detachment surgery so he cant see anything out of his left eye. HE isn't allowed to lay on his back for another month due to the gas bubble if he wears the clamp he goes through 2 pads if he doesn't wear the clip he will go through 3 heavy pads. HE only drinks water. Voids per day are 15-20 times especially with the clamp as it backs up and it starts to burn behind it so he goes. HE goes every 20 min to a 1/2 hour when the day begins. if he is in a sitting position and driving which he does a lot of he wont leak when he is sitting but as soon as he gets up he will leak PT-OP-I Pelvic Floor Start: 05/04/25 08:12 Freq: Status: Active Protocol: Document 05/04/25 13:00 [facility] (Rec: 05/06/25 17:18 [facility] [id number]) Pelvic Floor Assessment Urine Pelvic Floor Surgery Yes: prostatectomy Urinary Symptoms Urge Sensation Leakage Size Large Leakage Cause Cough,Exercise,Lifting,Sneeze,Urge Other Leakage Causes leakage is constant despite activity Leaks Per Day constant Voiding Frequency 11-14 times Nocturia 2 Urine Pad Type Depends Contraction Ability Voluntary Weak Contraction Voluntary Relaxation Weak Muscle Endurance ( 5 Seconds) PT-OP-Q Treatments Start: 05/04/25 08:12 Freq: Status: Active Protocol: Document 05/04/25 13:30 [facility] (Rec: 05/04/25 13:54 [facility] [id number]) Therapeutic Exercises Sidelying Exercises pelvic floor isolations in sidelying Reps/Minutes x 10 reps Comments pillow between knees for adductor assist clam shells Reps/Minutes 3 x 10 reps Other Exercises sit to stand Reps/Minutes x 10 Self-Care/Home Management Treatment Education Patient Education Home Exercise Program Other Education urge deference technique and bladder retraining PT-OP-T Assessment and Plan Start: 05/04/25 08:12 Freq: Status: Active Protocol: Document 05/04/25 13:00 [facility] (Rec: 05/06/25 17:07 [facility] [id number]) Physical Therapy Assessment Rehab Potential Rehabilitation Good Potential Evaluation Complexity Number of Personal 1-2 Factors/ Comorbidities Number of Body 3 Systems Impaired Clinical Evolving Presentation at Evaluation Impairments Impairments Activity Tolerance,Strength Other Impairments urinary leakage Goals 3 Impairment urinary urgency and nocturia Short Term Goal (STG Arturo is educated on the urge deference technique and ) bladder retraining STG Duration 5 weeks 2 Impairment urinary incontinence that is described as constant throughout the day Senior Care Goal (LTG) Arturo reports a overall reduction in urinary leakage and is no longer experiencing the constant leakage LTG Duration 8 weeks One Impairment pelvic floor weakness s/p prostatectomy Senior Care Goal (LTG) Arturo is able to sustain a pelvic floor contraction in supine x 10 seconds and in sitting x 5 seconds with pelvic floor relaxation in between contractions LTG Duration 8 weeks Assessment Summary Assessment Arturo is a 59 year old male referred to PT s/p prostatectomy january of 2025 with chief complaints of urinary incontinence symptoms. Arturo reports he has been working on kegels since surgery. He reports doing over 300 per day. He feels that there has been a small amount of improvement as he is no longer waking up wet in the am. When he is upright he is experiencing constant leakage and is using a clamp along with a small pad to control leakage. Without the clamp leakage is increased with strong urge to void and will light activity. He will note leakage when transitioning from sit to stand Leakage can also occur without reason. Arturo is waking 2-3 times at night to void and is voiding approx 15 times per day. He notes when he isn't wearing the clamp that he is emptying his bladder frequently prior to the need to void. Arturo also just had surgery for retina detachment and has not been cleared yet to return to work. Arturo was educated today on urge deference technique and bladder retraining. He was educated on pelvic floor endurance holds with 10 sec rest in between contractions to allow time to fully rest his pelvic floor. He was educated on hip ER strengthening to help with pelvic floor support. We discussed voiding and pelvic floor relaxation with voiding to try and fully empty the bladder. Arturo was educated on EMG biofeedback for pelvic floor endurance training for future visits. He tolerated treatment well today and is a good candidate for PT Physical Therapy Plan Frequency and Duration Frequency of 1x/Week Treatment Duration of 8 treatment (weeks) Plan of Care Start 05/04/25 Date Plan of Care End 06/29/25 Date Therapeutic Interventions Therapeutic Home Exercise Program,Neuromuscular Re-education, Interventions Patient/Caregiver Education,Self-Care/Home Management, Therapeutic Exercises Modalities Biofeedback
--- NOTE | 2025-05-06 17:19 | PT.OPPOC ---
Physical, Occupational & Speech Therapy At [facility] Current Diagnoses Malignant neoplasm of prostate (05/04/25) Unspecified symptoms and signs involving the genitourinary system (05/04/25) Visit Care Team Role Provider Type Theresa Johnson MD Family Provider Physician Primary Care Provider Specialty: Internal Medicine Address: [address], [address], [place], [address] Email: Ajay Severino MD Attending Provider Non-Staff Referring Provider Specialty: Urology Address: [address] , [place], [address] Email: Plan Of Care PT-OP-B Current Condition Start: 05/04/25 08:12 Freq: Status: Active Protocol: Document 05/04/25 13:00 REPLACED BY [facility] (Rec: 05/04/25 13:30 REPLACED BY [facility] [id number]) Current Condition History of Current Condition Onset Date January 2025 Current Complaints urinary leakage that is constant in nature History of Current 59 year old male with hx of prostatectomy 3 months ago Condition in [place]. January 2025( HE is scheduled for radiation and hormone therapy in July Arturo reports he is experiencing incontinence and he has seen very slow improvement since surgery he doesn't leak much at night but he is waking up with a urge to void and the trip from his bed to the bathroom he leaks with his job he isn't always near a bathroom so he does have a clamp he wears but he also had to have retinal detachment surgery so he cant see anything out of his left eye. HE isn't allowed to lay on his back for another month due to the gas bubble if he wears the clamp he goes through 2 pads if he doesn't wear the clip he will go through 3 heavy pads. HE only drinks water. Voids per day are 15-20 times especially with the clamp as it backs up and it starts to burn behind it so he goes. HE goes every 20 min to a 1/2 hour when the day begins. if he is in a sitting position and driving which he does a lot of he wont leak when he is sitting but as soon as he gets up he will leak PT-OP-T Assessment and Plan Start: 05/04/25 08:12 Freq: Status: Active Protocol: Document 05/04/25 13:00 REPLACED BY [facility] (Rec: 05/06/25 17:07 REPLACED BY [facility] [id number]) Physical Therapy Assessment Rehab Potential Rehabilitation Good Potential Evaluation Complexity Number of Personal 1-2 Factors/ Comorbidities Number of Body 3 Systems Impaired Clinical Evolving Presentation at Evaluation Impairments Impairments Activity Tolerance,Strength Other Impairments urinary leakage Goals 3 Impairment urinary urgency and nocturia Short Term Goal (STG Arturo is educated on the urge deference technique and ) bladder retraining STG Duration 5 weeks 2 Impairment urinary incontinence that is described as constant throughout the day Order Entry Representative Goal (LTG) Arturo reports a overall reduction in urinary leakage and is no longer experiencing the constant leakage LTG Duration 8 weeks One Impairment pelvic floor weakness s/p prostatectomy Halfway Goal (LTG) Arturo is able to sustain a pelvic floor contraction in supine x 10 seconds and in sitting x 5 seconds with pelvic floor relaxation in between contractions LTG Duration 8 weeks Assessment Summary Assessment Arturo is a 59 year old male referred to PT s/p prostatectomy january of 2025 with chief complaints of urinary incontinence symptoms. Arturo reports he has been working on kegels since surgery. He reports doing over 300 per day. He feels that there has been a small amount of improvement as he is no longer waking up wet in the am. When he is upright he is experiencing constant leakage and is using a clamp along with a small pad to control leakage. Without the clamp leakage is increased with strong urge to void and will light activity. He will note leakage when transitioning from sit to stand Leakage can also occur without reason. Arturo is waking 2-3 times at night to void and is voiding approx 15 times per day. He notes when he isn't wearing the clamp that he is emptying his bladder frequently prior to the need to void. Arturo also just had surgery for retina detachment and has not been cleared yet to return to work. Arturo was educated today on urge deference technique and bladder retraining. He was educated on pelvic floor endurance holds with 10 sec rest in between contractions to allow time to fully rest his pelvic floor. He was educated on hip ER strengthening to help with pelvic floor support. We discussed voiding and pelvic floor relaxation with voiding to try and fully empty the bladder. Arturo was educated on EMG biofeedback for pelvic floor endurance training for future visits. He tolerated treatment well today and is a good candidate for PT Physical Therapy Plan Frequency and Duration Frequency of 1x/Week Treatment Duration of 8 treatment (weeks) Plan of Care Start 05/04/25 Date Plan of Care End 06/29/25 Date Therapeutic Interventions Therapeutic Home Exercise Program,Neuromuscular Re-education, Interventions Patient/Caregiver Education,Self-Care/Home Management, Therapeutic Exercises Modalities Biofeedback Plan of Care Dates Plan of Care Start Date 05/04/25 Plan of Care End Date 06/29/25 Electronically Signed by: Emma Hu, PT 05/06/25 1260 If you are in agreement with this Plan of Care, please return a signed and dated copy. I have reviewed this Plan of Care and certify that the skilled therapy services above are required to meet the patient?s needs. Physician Signature Date Printed Name and Credentials Clinical Instructor Signature Printed Name and Credentials
--- NOTE | 2025-08-17 10:44 | PT.OPPOC ---
Physical, Occupational & Speech Therapy At [facility] Current Diagnoses Malignant neoplasm of prostate (08/17/25) Unspecified symptoms and signs involving the genitourinary system (08/17/25) Visit Care Team Role Provider Type Theresa Johnson MD Family Provider Physician Primary Care Provider Specialty: Internal Medicine Address: [address], [address], [place], [address] Email: Ajay Severino MD Attending Provider Non-Staff Referring Provider Specialty: Urology Address: [address] , [place], [address] Email: Plan Of Care PT-OP-A Visit Information Start: 05/04/25 08:12 Freq: Status: Active Protocol: Document 08/17/25 09:47 [facility] (Rec: 08/17/25 10:35 [facility] [id number]) Out-Patient Physical Therapy Visit Information Visit Information Visit Type Progress Note Visit Start Time 09:48 Visit Stop Time 10:30 Visit Number 3 PT-OP-B Current Condition Start: 05/04/25 08:12 Freq: Status: Active Protocol: Document 05/04/25 13:00 [facility] (Rec: 05/04/25 13:30 [facility] [id number]) Current Condition History of Current Condition Onset Date January 2025 Current Complaints urinary leakage that is constant in nature History of Current 59 year old male with hx of prostatectomy 3 months ago Condition in [place]. January 2025( HE is scheduled for radiation and hormone therapy in July Arturo reports he is experiencing incontinence and he has seen very slow improvement since surgery he doesn't leak much at night but he is waking up with a urge to void and the trip from his bed to the bathroom he leaks with his job he isn't always near a bathroom so he does have a clamp he wears but he also had to have retinal detachment surgery so he cant see anything out of his left eye. HE isn't allowed to lay on his back for another month due to the gas bubble if he wears the clamp he goes through 2 pads if he doesn't wear the clip he will go through 3 heavy pads. HE only drinks water. Voids per day are 15-20 times especially with the clamp as it backs up and it starts to burn behind it so he goes. HE goes every 20 min to a 1/2 hour when the day begins. if he is in a sitting position and driving which he does a lot of he wont leak when he is sitting but as soon as he gets up he will leak PT-OP-C Subjective Start: 05/04/25 08:12 Freq: Status: Active Protocol: Document 08/17/25 09:47 [facility] (Rec: 08/17/25 10:35 [facility] [id number]) OP-PT Subjective Patient Comments Patient Comments pt feels like it is slightly better but slow, still at night is fine but moving he is leaking. Radiation will start in October x 2 months . PT-OP-I Pelvic Floor Start: 05/04/25 08:12 Freq: Status: Active Protocol: Document 05/04/25 13:00 [facility] (Rec: 05/06/25 17:18 [facility] [id number]) Pelvic Floor Assessment Urine Pelvic Floor Surgery Yes: prostatectomy Urinary Symptoms Urge Sensation Leakage Size Large Leakage Cause Cough,Exercise,Lifting,Sneeze,Urge Other Leakage Causes leakage is constant despite activity Leaks Per Day constant Voiding Frequency 11-14 times Nocturia 2 Urine Pad Type Depends Contraction Ability Voluntary Weak Contraction Voluntary Relaxation Weak Muscle Endurance ( 5 Seconds) PT-OP-Q Treatments Start: 05/04/25 08:12 Freq: Status: Active Protocol: Document 08/17/25 09:47 [facility] (Rec: 08/17/25 10:35 [facility] [id number]) Therapeutic Exercises Other Exercises eccentric training with EMG biofeedback Reps/Minutes x 5 reps pelvic floor long holds Other Exercise Name 26.5 and max of 47.6 warrior one Reps/Minutes hold 30 sec to i min piriformis stretch Reps/Minutes modifed bridges Reps/Minutes x 10 reps modified pelvic floor stretch Reps/Minutes hold 1-2 min Comments left sided tightness PT-OP-T Assessment and Plan Start: 05/04/25 08:12 Freq: Status: Active Protocol: Document 08/17/25 09:47 [facility] (Rec: 08/17/25 10:35 [facility] [id number]) Physical Therapy Assessment Goals 3 Impairment urinary urgency and nocturia Short Term Goal (STG Arturo is educated on the urge deference technique and ) bladder retraining goal met and Arturo is not experiencing the urgency now. STG Duration 5 weeks 2 Impairment urinary incontinence that is described as constant throughout the day Multimedia Designer Goal (LTG) Arturo reports a overall reduction in urinary leakage and is no longer experiencing the constant leakage leakage is no longer constant but with activity he notes leakage and it is worse as the day progresses LTG Duration 8 weeks One Impairment pelvic floor weakness s/p prostatectomy Residential Goal (LTG) Arturo is able to sustain a pelvic floor contraction in supine x 10 seconds and in sitting x 5 seconds with pelvic floor relaxation in between contractions goal met LTG Duration 8 weeks Assessment Summary Assessment Time was spent today working not only on strengthening but eccentric control and relaxation of the pelvic floor to assure that it is not over tight and guarded and to contribute to fully empty the bladder when voiding. Arturo notes he is feeling he is tightening his pelvic floor at rest and time was spent educating on the importance of relaxation as well . I am extending the plan of care for him with options to continue with PT if he feels like he needs another visit in the next couple of months Physical Therapy Plan Frequency and Duration Frequency of 1 Treatment Duration of 8 treatment (weeks) Plan of Care Start 08/17/25 Date Plan of Care End 10/12/25 Date Therapeutic Interventions Therapeutic Home Exercise Program,Neuromuscular Re-education, Interventions Patient/Caregiver Education,Self-Care/Home Management, Therapeutic Exercises Modalities Biofeedback Next Visit Focus/Plan Next Note Type Treatment Note Next Visit Plan review eccentric control with elevator exercises next visit Plan of Care Dates Plan of Care Start Date 08/17/25 Plan of Care End Date 10/12/25 Electronically Signed by: Emma Hu, PT 08/17/25 [id number] If you are in agreement with this Plan of Care, please return a signed and dated copy. I have reviewed this Plan of Care and certify that the skilled therapy services above are required to meet the patient?s needs. Physician Signature Date Printed Name and Credentials Clinical Instructor Signature Printed Name and Credentials
--- NOTE | 2025-11-24 08:46 | PT.OPDS ---
Current Diagnoses Malignant neoplasm of prostate (08/17/25) Unspecified symptoms and signs involving the genitourinary system (08/17/25) Visit Care Team Role Provider Type Theresa Johnson MD Family Provider Physician Primary Care Provider Specialty: Internal Medicine Address: [address], [address], [place], [address] Email: Ajay Severino MD Attending Provider Non-Staff Referring Provider Specialty: Urology Address: [address], [address], [place], [address] Email: Visit Number Visit Number 3 Discharge Summary PT-OP-A Visit Information Start: 05/04/25 08:12 Freq: Status: Active Protocol: Document 08/17/25 09:47 [facility] (Rec: 08/17/25 10:35 [facility] [id number]) Out-Patient Physical Therapy Visit Information Visit Information Visit Type Progress Note Visit Start Time 09:48 Visit Stop Time 10:30 Visit Number 3 PT-OP-B Current Condition Start: 05/04/25 08:12 Freq: Status: Active Protocol: Document 05/04/25 13:00 [facility] (Rec: 05/04/25 13:30 [facility] [id number]) Current Condition History of Current Condition Onset Date January 2025 Current Complaints urinary leakage that is constant in nature History of Current 59 year old male with hx of prostatectomy 3 months ago Condition in [place]. January 2025( HE is scheduled for radiation and hormone therapy in July Arturo reports he is experiencing incontinence and he has seen very slow improvement since surgery he doesn't leak much at night but he is waking up with a urge to void and the trip from his bed to the bathroom he leaks with his job he isn't always near a bathroom so he does have a clamp he wears but he also had to have retinal detachment surgery so he cant see anything out of his left eye. HE isn't allowed to lay on his back for another month due to the gas bubble if he wears the clamp he goes through 2 pads if he doesn't wear the clip he will go through 3 heavy pads. HE only drinks water. Voids per day are 15-20 times especially with the clamp as it backs up and it starts to burn behind it so he goes. HE goes every 20 min to a 1/2 hour when the day begins. if he is in a sitting position and driving which he does a lot of he wont leak when he is sitting but as soon as he gets up he will leak PT-OP-C Subjective Start: 05/04/25 08:12 Freq: Status: Active Protocol: Document 08/17/25 09:47 [facility] (Rec: 08/17/25 10:35 [facility] [id number]) OP-PT Subjective Patient Comments Patient Comments pt feels like it is slightly better but slow, still at night is fine but moving he is leaking. Radiation will start in October x 2 months . PT-OP-I Pelvic Floor Start: 05/04/25 08:12 Freq: Status: Active Protocol: Document 05/04/25 13:00 [facility] (Rec: 05/06/25 17:18 [facility] [id number]) Pelvic Floor Assessment Urine Pelvic Floor Surgery Yes: prostatectomy Urinary Symptoms Urge Sensation Leakage Size Large Leakage Cause Cough,Exercise,Lifting,Sneeze,Urge Other Leakage Causes leakage is constant despite activity Leaks Per Day constant Voiding Frequency 11-14 times Nocturia 2 Urine Pad Type Depends Contraction Ability Voluntary Weak Contraction Voluntary Relaxation Weak Muscle Endurance ( 5 Seconds) PT-OP-T Assessment and Plan Start: 05/04/25 08:12 Freq: Status: Active Protocol: Document 11/24/25 08:44 [facility] (Rec: 11/24/25 08:46 [facility] [id number]) Physical Therapy Assessment Goals 3 Impairment urinary urgency and nocturia Short Term Goal (STG Arturo is educated on the urge deference technique and ) bladder retraining goal met and Arturo is not experiencing the urgency now. STG Duration 5 weeks 2 Impairment urinary incontinence that is described as constant throughout the day Half-Way Goal (LTG) Arturo reports a overall reduction in urinary leakage and is no longer experiencing the constant leakage leakage is no longer constant but with activity he notes leakage and it is worse as the day progresses LTG Duration 8 weeks One Impairment pelvic floor weakness s/p prostatectomy Terminal Block Assembler Goal (LTG) Arturo is able to sustain a pelvic floor contraction in supine x 10 seconds and in sitting x 5 seconds with pelvic floor relaxation in between contractions goal met LTG Duration 8 weeks Assessment Summary Assessment Time was spent last visit working not only on strengthening but eccentric control and relaxation of the pelvic floor to assure that it is not over tight and guarded and to contribute to fully empty the bladder when voiding. Arturo notes he is feeling he is tightening his pelvic floor at rest and time was spent educating on the importance of relaxation as well . At this point he is Independent with his HEP and will be DC from PT Physical Therapy Plan Discharge Physical Therapy Discharge Comments good overall progress towards goals and pt is working on HEP
== END 2025-11-24 10:53 | disposition home or self-care (01) ==
LOC: PHYS 09:45
PROVIDERS: Family Provider Internal Medicine; PCP Internal Medicine; Referring Provider Urology; Visit Provider Urology
DX: C61 Malignant neoplasm of prostate (principal); R39.9 Unspecified symptoms and signs involving the genitourinary system
CPT/HCPCS: 97110; 97162; 97535